=== PATIENT | female | born 1955 | race Caucasian/White ===

== ENCOUNTER 2022-08-09 14:12 | Outpatient (REF) | payer OTHER, SELFPAY ==
[2022-08-09 16:23] LABS: MANUAL DIFF FLAG NO
[2022-08-09 16:27] LABS: Basophils Absolute Auto 0.1 X10*3/uL (0.0-0.2); Basophils Percent Auto 0.6 % (0-2); Eosinophils Percent Auto 0.2 % (0-4); Hemoglobin 15.3 g/dl (12.0-16.0); Imm Gran Abs Auto 0.04 X10*3/uL (0.00-0.03); Imm Gran Pct Auto 0.3 % (0.0-0.4); Lymphocytes Absolute Auto 4.2 X10*3/uL (1.2-4.9); Lymphocytes Percent Auto 34.2 % (20-40); Mean Corpuscular Hemoglobin 28.5 pg (27.0-33.0); Mean Platelet Volume 9.6 fL (9.4-12.3); Monocytes Absolute Auto 0.9 X10*3/uL (0.1-1.2); Monocytes Percent Auto 7.6 % (2-11); Neutrophils Absolute Auto 6.9 x10*3/uL (2.0-8.3); Neutrophils Percent Auto 57.1 % (45-73); Platelet Count 347 X10*3/uL (160-400); Red Blood Count 5.36 X10*6/uL (4.20-5.50); Red Cell Distribution Width 13.4 % (11.0-16.0); White Blood Count 12.2 X10*3/uL (4.8-10.8)
[2022-08-09 16:40] LABS: Alanine Aminotransferase 22 U/L (0-31); Albumin Level 4.7 g/dL (3.5-5.0); Alkaline Phosphatase 74 U/L (39-117); Anion Gap 20 (12-20); Aspartate Amino Transferase 18 U/L (5-31); Bilirubin Direct < 0.2 mg/dL (0.0-0.5); Bilirubin Total 0.3 mg/dL (0.0-1.0); Blood Urea Nitrogen 11 mg/dL (9-16); Carbon Dioxide 22 mmol/L (22-29); Chloride 91 mmol/L (96-108); Estimated Glomerular Filt Rate > 60; Glucose Fasting 310 mg/dL (60-99); Potassium 4.8 mmol/L (3.3-5.1); Sodium 128 mmol/L (135-145); Total Protein 7.7 g/dL (6.5-8.0)
[2022-08-09 16:42] LABS: Estimated Average Glucose 269 mg/dL
[2022-08-09 16:48] LABS: Creatinine Urine 33.92 mg/dL; Microalbum/Creatinine Ratio Ur 297.7 ug/mg cr
[2022-08-09 17:00] LABS: TSH reflex Free T4 1.33 uIU/mL (0.32-4.0)
== END 2022-08-09 14:13 | disposition home or self-care (01) ==
LOC: HO.HMGCLDS 14:12
PROVIDERS: PCP Internal Medicine; Visit Provider Internal Medicine
DX: B37.9 Candidiasis, unspecified (principal); E11.9 Type 2 diabetes mellitus without complications; F41.1 Generalized anxiety disorder; G47.9 Sleep disorder, unspecified; I10 Essential (primary) hypertension; Z76.89 Persons encountering health services in other specified circumstances
CPT/HCPCS: 36415; 80053; 80076; 82043; 82248; 83036; 84443; 85025

== ENCOUNTER 2022-08-20 10:11 | Outpatient (REF) | payer OTHER, SELFPAY ==
[2022-08-20 11:51] LABS: Anion Gap 16 (12-20); Blood Urea Nitrogen 8 mg/dL (9-16); Carbon Dioxide 26 mmol/L (22-29); Chloride 94 mmol/L (96-108); Estimated Glomerular Filt Rate > 60; Potassium 4.7 mmol/L (3.3-5.1); Sodium 131 mmol/L (135-145)
== END 2022-08-20 10:12 | disposition home or self-care (01) ==
LOC: HO.HMGCLDS 10:11
PROVIDERS: PCP Internal Medicine; Visit Provider Internal Medicine
DX: E87.1 Hypo-osmolality and hyponatremia (principal)
CPT/HCPCS: 36415; 80051; 82565; 84520

== ENCOUNTER 2023-02-07 09:43 | Outpatient (REF) | payer OTHER, SELFPAY ==
[2023-02-07 11:32] LABS: Estimated Average Glucose 237 mg/dL; Hemoglobin A1c % 9.9 %
[2023-02-07 11:50] LABS: Alanine Aminotransferase 19 U/L (0-31); Albumin Level 4.8 g/dL (3.5-5.0); Alkaline Phosphatase 70 U/L (39-117); Anion Gap 15 (12-20); Aspartate Amino Transferase 14 U/L (5-31); Bilirubin Total 0.4 mg/dL (0.0-1.0); Blood Urea Nitrogen 9 mg/dL (9-16); Calcium 9.9 mg/dL (8.4-10.2); Carbon Dioxide 26 mmol/L (22-29); Chloride 94 mmol/L (96-108); Estimated Glomerular Filt Rate > 60; Glucose Random 226 mg/dL (60-115); Potassium 4.4 mmol/L (3.3-5.1); Sodium 131 mmol/L (135-145); Total Protein 7.7 g/dL (6.5-8.0)
--- NOTE | 2023-03-06 14:45 | MHC.HEMONCSW ---
SW rec'd a voicemail message from Katja Ortiz stating that she was told to come someone in oncologist ab=nd left the # . Called that # and rec'd a msg stating, This is Cowboy, you know what to do . I tried the number again in the event i had dialed wrong, got the same message. Left a msg with the above info. and my contact info.
--- NOTE | 2023-03-06 14:53 | MHC.HEMONCSW ---
LUIS rec'd call back from Katja Ortiz who said her primary dr had told her to call here, but has not mentioned anything about cancer. Luis directed her back to her primary for more information and call us back, and suggested maybe her . needs to call.
== END 2023-02-07 09:44 | disposition home or self-care (01) ==
LOC: HO.HMGCLDS 09:43
PROVIDERS: PCP Internal Medicine; Visit Provider Internal Medicine
DX: E87.1 Hypo-osmolality and hyponatremia (principal); I10 Essential (primary) hypertension; F41.1 Generalized anxiety disorder
CPT/HCPCS: 36415; 80053; 83036

== ENCOUNTER 2023-06-02 08:04 | Day surgery (SDC) | payer OTHER, SELFPAY ==
[2023-06-02 08:57] VITALS: BMI 25.4
--- NOTE | 2023-06-02 09:20 | HO.ANESPROP2 ---
FORMERLY [facility], LATER [facility] Active Problems Active Problems: All Active Problems (Updated 06/02/23 @ 09:16 by Sade Tucker RN) Establishing care with new doctor, encounter for (Acute) Diabetes mellitus (Acute) Anxiety, generalized (Acute) Difficulty sleeping (Acute) Hypertension, essential (Acute) Yeast infection (Acute) Encounter for routine gynecological examination (Acute) Hyponatremia (Acute) Uncontrolled diabetes mellitus (Acute) Tobacco abuse (Acute) Smokers' cough (Acute) Past Medical History Medical History Anxiety Diabetes Elevated cholesterol HTN (hypertension) Smoker Family History Family history of problems with anesthesia: No Surgical History Surgical History (Updated 06/02/23 @ 09:17 by Sade Tucker, RN) Hx of colonoscopy Hx of elbow surgery History of Problems with Anesthesia: No Social History Social History Housing: House Patient Tobacco Use Status: Current everyday Tobacco user Tobacco use type: Cigarette Cigarettes Per Day: 9 e-Cigarette/Vaping Use: Never Used Use of substances other than those prescribed or required for medical reasons: Yes Substance Use Type Other:: smoked and edibles Substance Use Frequency: Occasionally Are you DNR?: No Advance Directives: No Advance Directives Information Provided: Yes service: No Current occupational status: disabled Cognitive needs: No Hearing needs: No Vision needs: Yes Meds Allergies Allergy/AdvReac Type Severity Reaction Status Date / Time paroxetine [From Paxil] AdvReac Itching Verified 06/02/23 09:17 Active Medications: Current Medications Albuterol Sulfate (Albuterol Sulfate (0.083%) 2.5 Mg/3 Ml Vial.Neb) 2.5 mg INHALE ONCE PRN PRN Reason: Shortness of Breath/Wheezing Lactated Ringer's (Lr) 1,000 mls @ 100 mls/hr IVCONT .Q10H [facility] Home Medications Medication Instructions Recorded Confirmed Last Taken Type clonazepam 0.5 mg tablet 0.5 mg PO BID 06/02/23 06/02/23 Unknown History Exam Exam Date and Time: June 02, 2023 0920 Height,Weight and Vital Signs: Height 5 ft 6.5 in Weight 72.575 kg Airway Mallampati Class: II TM Dist: >3cm Neck ROM: Full Denture: Upper Heart: rrr Lungs: cta Assessment and Plan Assessment Anesthesia Assessment: Anesthesia Plan Discussed and Chart Reviewed Final Anesthetic Review Family History of Problems with Anesthesia: No History of Problems with Anesthesia: No NPO: Yes ASA Class: III Final Preanesthetic Review: No Changes in Pt Med Stat, Meds/Allgs Chart Reviewed and Consent Obtained/Reviewed Patient Risk: Intermediate Procedure Risk: Intermediate Anesthetic Plan Anesthetic Plan: MAC: Disposition: Standard PACU
[2023-06-02 09:30] VITALS: BP 128/83; PULSE 81; RESP 16; TEMP 35.9; O2SAT 99
[2023-06-02] MEDS: Lactated Ringers 1,000 ML 100 ML IVCONT (09:31)
[2023-06-02 09:36] LABS: Glucose, Whole Blood 251 mg/dL (60-115)
--- NOTE | 2023-06-02 09:52 | MHC.SHP ---
Pre-Procedural Eval Section A Date of Service: 06/02/23 The patient is an INPATIENT: No The History & Physical has been completed within 30 days and I have reviewed it.: No Section B Chief Complaint: Encounter for screening for malignant neoplasm Relevant Family History (Specify if Yes): No Relevant Social History: Tobacco Use Present Medications: see Short Stay Collaborative assessment Medical History: Significant History (Hypertension, diabetes mellitus, anxiety disorder) History of Previous Operations: Relevant previous surgery/procedure and date(s) (History of colonoscopy, history of elbow surgery) Allergies: Allergies Allergy/AdvReac Type Severity Reaction Status Date / Time paroxetine [From Paxil] AdvReac Itching Verified 06/02/23 09:17 Review of Systems Sugical H&P ROS: Negative: Constitution, Cardiovascular, Respiratory and Gastrointestinal Exam Surgical H&P Exam: Normal: Heart, Normal: Lungs, Normal: Extremities and Normal: Abdomen Plan Diagnosis/Plan: Change (proceed with colonoscopy) I have reviewed the history and physical and performed a pertinent physical examination on my patient. No changes have occurred unless specified. Time Spent With Patient Time: Total time managing care of this patient today ____ minutes.
--- NOTE | 2023-06-02 10:26 | W.PM.OPN ---
Operative Note Operative Note Date of Service: 06/02/23 Narrative: COLONOSCOPY TILL CECUM WITH SNARE POLYPECTOMY Pre-op diagnosis: Colon cancer screening (pt scheduled for direct access colonosopy) Post-op diagnosis:? Colon polyps, diverticulosis Endoscopist:? Argenis Erazo MD Anesthesia:?MAC Consent: Indications for the procedure and potential complications of bleeding, perforation, reaction to medications and missed diagnosis were discussed with the patient and informed consent was obtained. Instrument: Olympus PCF H 190 L variable stiffness pediatric colonoscope Monitoring: Vital signs and clinical assessment, intermittent blood pressure monitoring, continuous EKG monitoring, Pulse oximetry and Carbon Dioxide monitoring were done throughout the procedure. Please see anesthesia flowsheet. Colon withdrawl time was 20 minutes. Procedure: The patient was placed in the left lateral decubitis position and pre-procedure medications were administered. After a digital rectal examination of the ano-rectum, the video colonoscope was inserted into the rectum and advanced through the colon to the cecum. The colonoscope was slowly withdrawn in a retrograde panoramic fashion and the colon mucosa was carefully examined including a retroflexed view of the rectum. Findings and interventions are described below. Procedure Difficulty: Without difficulty Findings: Terminal Ileum: Not evaluated Cecum: Normal Ascending Colon: A 6-7 mm sessile polyp in mid AC - removed with a cold snare Transverse Colon: A 12-15 mm sessile polyp at the hepatic flexure at 70 cms - removed with a hot snare Descending Colon: Moderate diverticulosis Sigmoid Colon: Three 8-12 mm sessile polyps - removed with a hot snare. Moderate diverticulosis Rectum: Normal Ano-rectum: Normal Colon preparation: Good after some irrigation Impression and Post Procedure Diagnosis: Colonoscopy Findings: Five small to medium sized polyps removed Moderate diverticulosis seen in the left colon Plan: I will send a letter with pathology results Patient has an appointment on 06/17/23 with her PCP. Repeat Colonoscopy interval based on path results - in 2-3 years if polyps are adenomatous and 10 years if polyps are hyperplastic. Above findings were reviewed with the patient and colon polyps and diverticulosis handouts were given in the discharge area
[2023-06-02 11:13] VITALS: BP 139/77; PULSE 82; RESP 16; TEMP 36.3; O2SAT 98
[2023-06-02 11:28] VITALS: BP 133/76; PULSE 75; RESP 14; TEMP 36.8; O2SAT 100
== END 2023-06-02 11:59 | disposition home or self-care (01) ==
PROVIDERS: PCP Internal Medicine; Visit Provider Internal Medicine Gastroenterology
PROC: 0DJD8ZZ Inspection of Lower Intestinal Tract, Via Natural or Artificial Opening Endoscopic (ICD-10-PCS; CPT 45378; principal; 2023-06-02 10:10)
DX: Z12.11 Encounter for screening for malignant neoplasm of colon (principal); D12.2 Benign neoplasm of ascending colon; D12.5 Benign neoplasm of sigmoid colon; K57.30 Diverticulosis of large intestine without perforation or abscess without bleeding; E11.9 Type 2 diabetes mellitus without complications; I10 Essential (primary) hypertension; Z79.84 Long term (current) use of oral hypoglycemic drugs; Z79.899 Other long term (current) drug therapy; F17.210 Nicotine dependence, cigarettes, uncomplicated
CPT/HCPCS: 45385; 82947; 88305

== ENCOUNTER → 2023-06-02 08:04 | Outpatient (BNV) | payer OTHER, SELFPAY | PROVIDERS: PCP Internal Medicine; Visit Provider Internal Medicine Gastroenterology | DX: Z12.11 Encounter for screening for malignant neoplasm of colon (principal); D12.2 Benign neoplasm of ascending colon; D12.3 Benign neoplasm of transverse colon; D12.5 Benign neoplasm of sigmoid colon; K57.30 Diverticulosis of large intestine without perforation or abscess without bleeding | CPT/HCPCS: 45385 ==

== ENCOUNTER 2023-06-17 12:04 | Outpatient (AMB) | payer OTHER, SELFPAY ==
[2023-06-17 12:28] VITALS: BP 128/68; PULSE 85; O2SAT 98
--- NOTE | 2023-06-17 12:28 | A.OFFPC_ITS ---
Vital Signs 06/17/23 12:28 Weight 153 lb BP 128/68 Blood Pressure Location Lt brachial Position Sitting Pulse 85 Pulse Source Pulse Oximeter Pulse Oximetry (%) 98 Oxygen Delivery Method Room Air Intake Visit Reasons: BP Follow up Allergies paroxetine [From Paxil] Adverse Reaction (Verified 06/17/23 12:30) Itching Medication List - Last Reconciled 06/17/23 by Carlos Alberto Zapata MD atorvastatin 40 mg PO DAILY buspirone 15 mg PO TID 30 days clonazepam 0.5 mg PO BID glipizide 10 mg PO BID 90 days lisinopril 20 mg PO DAILY metformin 1,000 mg PO BID 90 days pioglitazone (Actos) 30 mg PO DAILY trazodone 200 mg (2 x 100 mg) PO BEDTIME PRN Tobacco use date assessed: 06/17/23 Fall risk assessment: No Falls in past year Last assessed Fall Risk: 06/17/23 Dental Screening Dental Screen Date: 06/17/23 Did you have a dental visit in the last 12 months?: No Did you have a dental problem in the last 6 months where you did not have access to dental care?: No Was dental information given to patient?: No HPI BP Follow up HPI Details Patient is 67-year-old female came in today for her follow-up appointment last time seen was January of this year Hypertension: Patient is on lisinopril 20 mg, tolerating medication and blood pressure is well controlled Patient continued to smoke and she is having smoker's cough.? Once again instructed patient to stop as soon as possible.? Sleeping difficulty:? Continue trazodone 100 mg patient has been taking that for a while initially was started by a psychiatrist that patient is no longer seeing Anxiety:? Buspirone will be fine I can fill that however I will not be able to prescribe clonazepam that she is taking 2 times a day through Psychiatry Diabetes mellitus: Last hemoglobin A1c was in 9 range, She is currently taking glipizide 10 mg b.i.d. and metformin 1 g b.i.d. and Actos 30 mg 80 Today her hemoglobin A1c is 9.3, I am starting her on Trulicity patient will be get up and will book appointment with the nurse so we can teach her how to administer that once a week Lipid disorder:? Continue atorvastatin 40 mg Patient is to return in 3 months for follow-up appointment labs to be done before visit PFSH Medical History Anxiety Diabetes Elevated cholesterol HTN (hypertension) Smoker Surgical History Hx of colonoscopy Hx of elbow surgery Social History Housing: House Patient Tobacco Use Status: Current everyday Tobacco user Tobacco use type: Cigarette Cigarettes Per Day: 9 e-Cigarette/Vaping Use: Never Used service: No Current occupational status: disabled Cognitive needs: No Hearing needs: No Vision needs: Yes Questionnaire AUDIT C Alcohol Use Questionnaire (AUDIT-C) 1. How often do you have a drink containing alcohol?: Never 3. How often do you have six or more drinks on one occasion?: Never Total Score: 0 Score Reviewed/Action Taken: Yes Review of Systems Const Denies chills and Denies fever(s) ENT Denies epistaxis and Denies nasal discharge Card Denies chest pain Resp Denies chest congestion, Denies cough and Denies hemoptysis GI Denies diarrhea and Denies nausea Skin/Breast Denies rash Neuro Reports no additional complaints Psych Reports no additional complaints Endo Reports no additional complaints Physical exam (Primary Care) Vital Signs: Last Vital Signs Pulse 85 06/17/23 12:28 BP 128/68 06/17/23 12:28 Pulse Ox 98 06/17/23 12:28 Oxygen Delivery Method Room Air 06/17/23 12:28 Tobacco/Smoking Status: Tobacco use Status Tobacco use date assessed 06/17/23 06/17/23 12:31 Patient Tobacco Use Status Current everyday Tobacco 06/17/23 12:31 Tobacco use type Cigarette 06/17/23 12:31 e-Cigarette/Vaping Use Never Used 06/17/23 12:31 Const General: cooperative, comfortable and no acute distress Orientation/consciousness: patient oriented x3 HENMT Head: Yes normocephalic Eyes General: appearance normal, both eyes and all related structures Neck Neck: Yes supple Resp Effort & Inspection: normal respiratory effort, no cough and no stridor Cardio Rhythm: regular rhythm Heart sounds: S1 normal heart sound present and S2 normal heart sound present Skin General skin exam: turgor normal Neuro General: patient oriented x3, tone normal and moves all extremities Extrem Right lower extremity: no edema Left lower extremity: no edema Results AMB Hemoglobin A1c AMB Hemoglobin A1c 9.3 % Last Edit by JHOAN Tay on 06/17/23 12 :52 Results Reviewed Results Reviewed: Laboratory Last Values Hgb A1c (Clinic) 9.3 % (4.0-6.0) H 06/17/23 12:51 Assessment and Plan Assessment & Plan (1) Uncontrolled diabetes mellitus: (2) Hypertension, essential: Code(s): I10 - Essential (primary) hypertension (3) Anxiety, generalized: Code(s): F41.1 - Generalized anxiety disorder (4) Difficulty sleeping: Code(s): G47.9 - Sleep disorder, unspecified (5) Tobacco abuse: Code(s): Z72.0 - Tobacco use (6) Smokers' cough: Code(s): J41.0 - Simple chronic bronchitis Plan Patient is 67-year-old female came in today for her follow-up appointment last time seen was January of this year Hypertension: Patient is on lisinopril 20 mg, tolerating medication and blood pressure is well controlled Patient continued to smoke and she is having smoker's cough.? Once again instructed patient to stop as soon as possible.? Sleeping difficulty:? Continue trazodone 100 mg patient has been taking that for a while initially was started by a psychiatrist that patient is no longer seeing Anxiety:? Buspirone will be fine I can fill that however I will not be able to prescribe clonazepam that she is taking 2 times a day through Psychiatry Diabetes mellitus: Last hemoglobin A1c was in 9 range, She is currently taking glipizide 10 mg b.i.d. and metformin 1 g b.i.d. and Actos 30 mg 80 Today her hemoglobin A1c is 9.3, I am starting her on Trulicity patient will be get up and will book appointment with the nurse so we can teach her how to administer that once a week Lipid disorder:? Continue atorvastatin 40 mg Patient is to return in 3 months for follow-up appointment labs to be done before visit Orders: Orders Hemoglobin A1c 3 Months F41.1 - Generalized anxiety disorder, G47.9 - Sleep disorder, unspecified, I10 - Essential (primary) hypertension Complete Blood Count Auto Diff 3 Months F41.1 - Generalized anxiety disorder, G47.9 - Sleep disorder, unspecified, I10 - Essential (primary) hypertension Comprehensive Met. Panel 3 Months F41.1 - Generalized anxiety disorder, G47.9 - Sleep disorder, unspecified, I10 - Essential (primary) hypertension LDL Cholesterol Direct 3 Months F41.1 - Generalized anxiety disorder, G47.9 - Sleep disorder, unspecified, I10 - Essential (primary) hypertension Microalbumin, Random (w Creat) 3 Months F41.1 - Generalized anxiety disorder, G47.9 - Sleep disorder, unspecified, I10 - Essential (primary) hypertension AMB Hemoglobin A1c Today Z13.9 - Encounter for screening, unspecified Medications: New Trulicity (dulaglutide) 1.5 mg (0.5 mL) subcut QWEEK 2 mL 3RF 30 days NS Coding Level of Care Code Est Pt Level 4 (59847) Diagnoses Uncontrolled diabetes mellitus Hypertension, essential I10 Anxiety, generalized F41.1 Difficulty sleeping G47.9 Tobacco abuse Z72.0 Smokers' cough J41.0
== END 2023-06-17 12:57 | disposition home or self-care (01) ==
PROVIDERS: PCP Internal Medicine; Visit Provider Internal Medicine
DX: I10 Essential (primary) hypertension (principal); J41.0 Simple chronic bronchitis; E11.65 Type 2 diabetes mellitus with hyperglycemia; F41.1 Generalized anxiety disorder; G47.9 Sleep disorder, unspecified; Z72.0 Tobacco use
CPT/HCPCS: 83036; 99214

== ENCOUNTER 2024-02-04 15:03 | Outpatient (AMB) | payer OTHER, SELFPAY ==
--- NOTE | 2024-02-04 15:07 | MHC.PC.OV ---
Vital Signs 02/04/24 15:16 Height 5 ft 6.5 in Weight 161 lb 6 oz BMI 25.7 BP 132/80 Blood Pressure Location Lt brachial Position Sitting Pulse 86 Pulse Source Pulse Oximeter Pulse Oximetry (%) 96 Oxygen Delivery Method Room Air Intake Visit Reasons: 6 month follow up Allergies paroxetine [From Paxil] Adverse Reaction (Verified 02/04/24 15:18) Itching Medication List - Last Reviewed 02/04/24 by Miriam Panda MA atorvastatin 40 mg PO DAILY buspirone 15 mg PO TID 30 days clonazepam 0.5 mg PO BID glipizide 10 mg PO BID 90 days lisinopril 20 mg PO DAILY metformin 1,000 mg PO BID 90 days pioglitazone (Actos) 30 mg PO DAILY trazodone 200 mg (2 x 100 mg) PO BEDTIME PRN Trulicity (dulaglutide) 1.5 mg (0.5 mL) subcut QWEEK 30 days NS Tobacco use date assessed: 02/04/24 Fall risk assessment: No Falls in past year Last assessed Fall Risk: 02/04/24 Dental Screening Dental Screen Date: 02/04/24 Did you have a dental visit in the last 12 months?: Yes Did you have a dental problem in the last 6 months where you did not have access to dental care?: No Was dental information given to patient?: Patient has dentist HPI 6 month follow up HPI Details Patient is 68-year-old female came in today for her follow-up appointment Labs were supposed to be done before the visit, but they are not done, reminded patient again Hypertension: Patient is on lisinopril 20 mg, tolerating medication and blood pressure is well controlled Patient continued to smoke and she is having smoker's cough.? Once again instructed patient to stop as soon as possible.? Sleeping difficulty:? Continue trazodone 100 mg patient has been taking that for a while initially was started by a psychiatrist that patient is no longer seeing Anxiety:? Buspirone will be fine I can fill that however I will not be able to prescribe clonazepam that she is taking 2 times a day through Psychiatry Diabetes mellitus: Blood sugar is uncontrolled She is currently taking glipizide 10 mg b.i.d. and metformin 1 g b.i.d. and Actos 30 mg I started her on Trulicity last visit Her hemoglobin A1c is 11.3, patient says that she never started Trulicity because pharmacy never keep. When I asked her wearing to let me know she said I do not know I have sent it again, this time patient is to let me know if there is a problem picking it up. Also we will be sending diabetic supplies, she is to start checking her fasting sugar She has an appointment early May patient will return with her sugar log Lipid disorder:? Continue atorvastatin 40 mg Patient is to return in 3 months [facility] Medical History Anxiety Smoker Diabetes Elevated cholesterol HTN (hypertension) Surgical History Hx of colonoscopy Hx of elbow surgery Social History Housing: House Patient Tobacco Use Status: Current everyday Tobacco user Tobacco use type: Cigarette Cigarettes Per Day: 9 e-Cigarette/Vaping Use: Never Used service: No Current occupational status: disabled Cognitive needs: No Hearing needs: No Vision needs: Yes Questionnaire AUDIT C Alcohol Use Questionnaire (AUDIT-C) 1. How often do you have a drink containing alcohol?: Never 3. How often do you have six or more drinks on one occasion?: Never Total Score: 0 Score Reviewed/Action Taken: Yes Review of Systems Const Denies chills and Denies fever(s) ENT Denies epistaxis and Denies nasal discharge Card Denies chest pain Resp Denies chest congestion, Denies cough and Denies hemoptysis GI Denies diarrhea and Denies nausea Skin/Breast Denies rash Neuro Reports no additional complaints Psych Reports no additional complaints Endo Reports no additional complaints Physical exam (Primary Care) Vital Signs: Last Vital Signs Pulse 86 02/04/24 15:16 BP 132/80 02/04/24 15:16 Pulse Ox 96 02/04/24 15:16 Oxygen Delivery Method Room Air 02/04/24 15:16 BMI result Body Mass Index 25.7 Tobacco/Smoking Status: Tobacco use Status Tobacco use date assessed 02/04/24 02/04/24 15:09 Patient Tobacco Use Status Current everyday Tobacco 02/04/24 15:09 Tobacco use type Cigarette 02/04/24 15:09 e-Cigarette/Vaping Use Never Used 02/04/24 15:09 Const General: cooperative, comfortable and no acute distress Orientation/consciousness: patient oriented x3 HENMT Head: Yes normocephalic Eyes General: appearance normal, both eyes and all related structures Neck Neck: Yes supple Resp Effort & Inspection: normal respiratory effort, no cough and no stridor Cardio Rhythm: regular rhythm Heart sounds: S1 normal heart sound present and S2 normal heart sound present Skin General skin exam: turgor normal Neuro General: patient oriented x3, tone normal and moves all extremities Extrem Right lower extremity: no edema Left lower extremity: no edema Results AMB Hemoglobin A1c AMB Hemoglobin A1c 11.3 % Last Edit by Miriam Panda MA on 02/04/24 15:28 Results Reviewed Results Reviewed: Laboratory Last Values Hgb A1c (Clinic) 11.3 % (4.0-6.0) H 02/04/24 15:27 Assessment and Plan Assessment & Plan (1) Uncontrolled diabetes mellitus: Qualifiers: Diabetes mellitus type: type 2 Glycemic state: with hyperglycemia Qualified Code(s): E11.65 - Type 2 diabetes mellitus with hyperglycemia (2) Hypertension, essential: Code(s): I10 - Essential (primary) hypertension (3) Anxiety, generalized: Code(s): F41.1 - Generalized anxiety disorder (4) Difficulty sleeping: Code(s): G47.9 - Sleep disorder, unspecified (5) Tobacco abuse: Code(s): Z72.0 - Tobacco use (6) Smokers' cough: Code(s): J41.0 - Simple chronic bronchitis Plan Patient is 68-year-old female came in today for her follow-up appointment Labs were supposed to be done before the visit, but they are not done, reminded patient again Hypertension: Patient is on lisinopril 20 mg, tolerating medication and blood pressure is well controlled Patient continued to smoke and she is having smoker's cough.? Once again instructed patient to stop as soon as possible.? Sleeping difficulty:? Continue trazodone 100 mg patient has been taking that for a while initially was started by a psychiatrist that patient is no longer seeing Anxiety:? Buspirone will be fine I can fill that however I will not be able to prescribe clonazepam that she is taking 2 times a day through Psychiatry Diabetes mellitus: Blood sugar is uncontrolled She is currently taking glipizide 10 mg b.i.d. and metformin 1 g b.i.d. and Actos 30 mg I started her on Trulicity last visit Her hemoglobin A1c is 11.3, patient says that she never started Trulicity because pharmacy never keep. When I asked her wearing to let me know she said I do not know I have sent it again, this time patient is to let me know if there is a problem picking it up. Also we will be sending diabetic supplies, she is to start checking her fasting sugar She has an appointment early May patient will return with her sugar log Lipid disorder:? Continue atorvastatin 40 mg Patient is to return in 3 months Medications: Refilled Trulicity (dulaglutide) 1.5 mg (0.5 mL) subcut QWEEK 2 mL 3RF 30 days NS Coding Level of Care Code Est Pt Level 4 (56546) Diagnoses Uncontrolled type 2 diabetes mellitus with hyperglycemia E11.65 Diabetes mellitus type: type 2 Glycemic state: with hyperglycemia Hypertension, essential I10 Anxiety, generalized F41.1 Difficulty sleeping G47.9 Tobacco abuse Z72.0 Smokers' cough J41.0
[2024-02-04 15:16] VITALS: BP 132/80; PULSE 86; O2SAT 96; BMI 25.7
== END 2024-02-04 15:31 | disposition home or self-care (01) ==
PROVIDERS: PCP Internal Medicine; Visit Provider Internal Medicine
DX: E11.65 Type 2 diabetes mellitus with hyperglycemia (principal); J41.0 Simple chronic bronchitis; I10 Essential (primary) hypertension; F41.1 Generalized anxiety disorder; G47.9 Sleep disorder, unspecified; Z72.0 Tobacco use
CPT/HCPCS: 99214

== ENCOUNTER 2024-04-16 13:38 | Outpatient (AMB) | payer OTHER, SELFPAY ==
--- NOTE | 2024-04-16 13:38 | A.OFFPC_ITS ---
Vital Signs 04/16/24 13:39 Height 5 ft 6.5 in Weight 155 lb 2 oz BMI 24.7 BP 154/90 H Blood Pressure Location Lt brachial Position Sitting Pulse 100 Pulse Source Pulse Oximeter Pulse Oximetry (%) 99 Oxygen Delivery Method Room Air Intake Visit Reasons: 9M Follow Up Allergies paroxetine [From Paxil] Adverse Reaction (Verified 04/16/24 13:41) Itching Medication List - Last Reconciled 04/16/24 by Carlos Alberto Zapata MD atorvastatin 40 mg PO DAILY blood sugar diagnostic (Accu-Chek Guide test strips) Test blood sugar once a day blood-glucose meter (Accu-Chek Guide Me Glucose Meter) As directed buspirone 15 mg PO TID 30 days clonazepam 0.5 mg PO BID dulaglutide 4.5 mg (0.5 mL) subcut QWEEK glipizide 10 mg PO BID 90 days lancets (Accu-Chek Softclix Lancets) Test blood sugar once a day lisinopril 20 mg PO DAILY metformin 1,000 mg PO BID 90 days pioglitazone (Actos) 30 mg PO DAILY trazodone 200 mg (2 x 100 mg) PO BEDTIME PRN Tobacco use date assessed: 04/16/24 Fall risk assessment: No Falls in past year Last assessed Fall Risk: 04/16/24 Dental Screening Dental Screen Date: 04/16/24 Did you have a dental visit in the last 12 months?: Yes Did you have a dental problem in the last 6 months where you did not have access to dental care?: No Was dental information given to patient?: Patient has dentist HPI 9M Follow Up HPI Details Patient is 68-year-old female came in today for regular follow-up appointment She still has not picked up Trulicity injection Still taking the same amount of insulin And has not been monitoring her sugar either She is here with her today He tells me that they will be picking up new monitor and Trulicity next week Once day hot die picker the glucometer they will start monitoring the blood pressure Once again uncontrolled diabetes complications discussed with the patient and her She also continued to smoke Blood pressure is elevated today Last visit in January it was reasonably controlled, we will continue to monitor Continue atorvastatin for lipid control Anxiety is stable with buspirone and clonazepam She is also taking trazodone to sleep at night Follow-up 3 months labs to be done today PFSH Medical History Anxiety Smoker Diabetes Elevated cholesterol HTN (hypertension) Surgical History Hx of colonoscopy Hx of elbow surgery Social History Housing: House Patient Tobacco Use Status: Current everyday Tobacco user Tobacco use type: Cigarette Cigarettes Per Day: 9 e-Cigarette/Vaping Use: Never Used service: No Current occupational status: disabled Cognitive needs: No Hearing needs: No Vision needs: Yes Questionnaire AUDIT C Alcohol Use Questionnaire (AUDIT-C) 1. How often do you have a drink containing alcohol?: Never 3. How often do you have six or more drinks on one occasion?: Never Total Score: 0 Score Reviewed/Action Taken: Yes Review of Systems Const Denies chills and Denies fever(s) ENT Denies epistaxis and Denies nasal discharge Card Denies chest pain Resp Denies hemoptysis GI Denies diarrhea and Denies nausea Skin/Breast Denies rash Neuro Reports no additional complaints Psych Reports no additional complaints Endo Reports no additional complaints Physical exam (Primary Care) Vital Signs: Last Vital Signs Pulse 100 04/16/24 13:39 BP 154/90 H 04/16/24 13:39 Pulse Ox 99 04/16/24 13:39 Oxygen Delivery Method Room Air 04/16/24 13:39 BMI result Body Mass Index 24.7 Tobacco/Smoking Status: Tobacco use Status Tobacco use date assessed 04/16/24 04/16/24 13:42 Patient Tobacco Use Status Current everyday Tobacco 04/16/24 13:42 Tobacco use type Cigarette 04/16/24 13:42 e-Cigarette/Vaping Use Never Used 04/16/24 13:42 Const General: cooperative, comfortable and no acute distress Orientation/consciousness: patient oriented x3 HENMT Head: Yes normocephalic Eyes General: appearance normal, both eyes and all related structures Neck Neck: Yes supple Resp Effort & Inspection: normal respiratory effort, no cough and no stridor Cardio Rhythm: regular rhythm Heart sounds: S1 normal heart sound present and S2 normal heart sound present Skin General skin exam: turgor normal Neuro General: patient oriented x3, tone normal and moves all extremities Extrem Right lower extremity: no edema Left lower extremity: no edema Assessment and Plan Assessment & Plan (1) Uncontrolled diabetes mellitus: Qualifiers: Diabetes mellitus type: type 2 Glycemic state: with hyperglycemia Qualified Code(s): E11.65 - Type 2 diabetes mellitus with hyperglycemia (2) Hypertension, essential: Code(s): I10 - Essential (primary) hypertension (3) Anxiety, generalized: Code(s): F41.1 - Generalized anxiety disorder (4) Difficulty sleeping: Code(s): G47.9 - Sleep disorder, unspecified (5) Tobacco abuse: Code(s): Z72.0 - Tobacco use Plan Patient is 68-year-old female came in today for regular follow-up appointment She still has not picked up Trulicity injection Still taking the same amount of insulin And has not been monitoring her sugar either She is here with her today He tells me that they will be picking up new monitor and Trulicity next week Once day hot die picker the glucometer they will start monitoring the blood pressure Once again uncontrolled diabetes complications discussed with the patient and her She also continued to smoke Blood pressure is elevated today Last visit in January it was reasonably controlled, we will continue to monitor Continue atorvastatin for lipid control Anxiety is stable with buspirone and clonazepam She is also taking trazodone to sleep at night Follow-up 3 months labs to be done today Orders: Orders Hemoglobin A1c Today E11.65 - Type 2 diabetes mellitus with hyperglycemia, F41.1 - Generalized anxiety disorder, G47.9 - Sleep disorder, unspecified, I10 - Essential (primary) hypertension, Z72.0 - Tobacco use Complete Blood Count Auto Diff Today E11.65 - Type 2 diabetes mellitus with hyperglycemia, F41.1 - Generalized anxiety disorder, G47.9 - Sleep disorder, unspecified, I10 - Essential (primary) hypertension, Z72.0 - Tobacco use LDL Cholesterol Direct Today E11.65 - Type 2 diabetes mellitus with hyperglycemia, F41.1 - Generalized anxiety disorder, G47.9 - Sleep disorder, unspecified, I10 - Essential (primary) hypertension, Z72.0 - Tobacco use Microalbumin, Random (w Creat) Today E11.65 - Type 2 diabetes mellitus with hyperglycemia, F41.1 - Generalized anxiety disorder, G47.9 - Sleep disorder, unspecified, I10 - Essential (primary) hypertension, Z72.0 - Tobacco use Comprehensive Met. Panel Today E11.65 - Type 2 diabetes mellitus with hyperglycemia, F41.1 - Generalized anxiety disorder, G47.9 - Sleep disorder, unspecified, I10 - Essential (primary) hypertension, Z72.0 - Tobacco use Coding Level of Care Code Est Pt Level 4 (14111) Complex EM visit Add On G2211 Diagnoses Uncontrolled type 2 diabetes mellitus with hyperglycemia E11.65 Diabetes mellitus type: type 2 Glycemic state: with hyperglycemia Hypertension, essential I10 Anxiety, generalized F41.1 Difficulty sleeping G47.9 Tobacco abuse Z72.0
[2024-04-16 13:39] VITALS: BP 154/90; PULSE 100; O2SAT 99; BMI 24.7
== END 2024-04-16 14:03 | disposition home or self-care (01) ==
LOC: HO.HMGC 13:38
PROVIDERS: PCP Internal Medicine; Visit Provider Internal Medicine
DX: E11.65 Type 2 diabetes mellitus with hyperglycemia (principal); I10 Essential (primary) hypertension; F41.1 Generalized anxiety disorder; G47.9 Sleep disorder, unspecified; Z72.0 Tobacco use
CPT/HCPCS: 99214; G2211

== ENCOUNTER 2024-04-16 14:00 | Outpatient (REF) | payer OTHER, SELFPAY ==
[2024-04-16 16:04] LABS: MANUAL DIFF FLAG NO
[2024-04-16 16:19] LABS: Basophils Absolute Auto 0.1 X10*3/uL (0.0-0.2); Basophils Percent Auto 0.4 % (0-2); Eosinophils Percent Auto 0.1 % (0-4); Hematocrit 42.3 % (37.0-47.0); Hemoglobin 14.6 g/dl (12.0-16.0); Imm Gran Abs Auto 0.07 X10*3/uL (0.00-0.03); Imm Gran Pct Auto 0.5 % (0.0-0.4); Lymphocytes Absolute Auto 2.7 X10*3/uL (1.2-4.9); Lymphocytes Percent Auto 19.2 % (20-40); Mean Corpuscular HGB Conc 34.5 g/dl (31.0-35.0); Mean Corpuscular Hemoglobin 28.8 pg (27.0-33.0); Mean Corpuscular Volume 83.4 fL (80.0-98.0); Mean Platelet Volume 9.8 fL (9.4-12.3); Monocytes Absolute Auto 1.1 X10*3/uL (0.1-1.2); Monocytes Percent Auto 7.7 % (2-11); Neutrophils Absolute Auto 10.1 x10*3/uL (2.0-8.3); Neutrophils Percent Auto 72.1 % (45-73); Platelet Count 306 X10*3/uL (160-400); Red Blood Count 5.07 X10*6/uL (4.20-5.50); Red Cell Distribution Width 13.7 % (11.0-16.0)
[2024-04-16 16:23] LABS: Estimated Average Glucose 171 mg/dL; Hemoglobin A1c % 7.6 % (<6.0)
[2024-04-16 16:27] LABS: Alanine Aminotransferase 18 U/L (0-31); Albumin Level 4.6 g/dL (3.5-5.0); Alkaline Phosphatase 57 U/L (39-117); Anion Gap 14 (12-20); Aspartate Amino Transferase 17 U/L (5-31); Bilirubin Total 0.4 mg/dL (0.0-1.0); Blood Urea Nitrogen 9 mg/dL (9-16); Calcium 9.9 mg/dL (8.4-10.2); Carbon Dioxide 25 mmol/L (22-29); Chloride 92 mmol/L (96-108); Estimated Glomerular Filt Rate > 60; Glucose Random 148 mg/dL (60-115); Sodium 127 mmol/L (135-145); Total Protein 7.7 g/dL (6.5-8.0)
[2024-04-17 14:18] LABS: LDL Cholesterol Direct 56 mg/dL (<100)
== END 2024-04-16 14:01 | disposition home or self-care (01) ==
LOC: HO.HMGCLDS 14:00
PROVIDERS: PCP Internal Medicine; Visit Provider Internal Medicine
DX: F41.1 Generalized anxiety disorder (principal); G47.9 Sleep disorder, unspecified; I10 Essential (primary) hypertension; E11.65 Type 2 diabetes mellitus with hyperglycemia; Z72.0 Tobacco use
CPT/HCPCS: 36415; 80053; 83036; 83721; 85025

== ENCOUNTER 2024-07-16 12:07 | Outpatient (AMB) | payer OTHER, SELFPAY ==
[2024-07-16 12:11] VITALS: BP 102/66; PULSE 102; O2SAT 99; BMI 24.5
--- NOTE | 2024-07-16 12:11 | A.OFFPC_ITS ---
Vital Signs 07/16/24 12:11 Height 5 ft 6.5 in Weight 154 lb BMI 24.5 BP 102/66 Blood Pressure Location Rt brachial Position Sitting Pulse 102 H Pulse Source Pulse Oximeter Pulse Oximetry (%) 99 Oxygen Delivery Method Room Air Intake Visit Reasons: 3 month follow up Allergies paroxetine [From Paxil] Adverse Reaction (Verified 07/16/24 12:17) Itching Medication List - Last Reconciled 07/16/24 by Carlos Alberto Zapata MD atorvastatin 40 mg PO DAILY blood sugar diagnostic (Accu-Chek Guide test strips) Test blood sugar once a day blood-glucose meter (Accu-Chek Guide Me Glucose Meter) As directed buspirone 15 mg PO TID 30 days clonazepam 0.5 mg PO BID dulaglutide 4.5 mg (0.5 mL) subcut QWEEK glipizide 10 mg PO BID 90 days lancets (Accu-Chek Softclix Lancets) Test blood sugar once a day lisinopril 20 mg PO DAILY metformin 1,000 mg PO BID 90 days pioglitazone (Actos) 30 mg PO DAILY trazodone 200 mg (2 x 100 mg) PO BEDTIME PRN Tobacco use date assessed: 04/16/24 Dental Screening Dental Screen Date: 04/16/24 HPI 3 month follow up HPI Details Patient is 68-year-old female came in today for regular follow-up appointment Patient is on Trulicity 4.5 mg injections Date is causing nausea and vomiting every morning Her hemoglobin A1c is 7.7 today I am reducing Trulicity to 3 mg hoping that that will help with nausea and vomiting She is also on metformin 1 g b.i.d. and pioglitazone 30 mg daily, she is to continue that She also continued to smoke , however cut down to half a pack a day Blood pressure is running low today but patient has no symptoms no lightheadedness no dizziness She has lost some weight since January Continue atorvastatin for lipid control Anxiety is stable with buspirone and clonazepam She is also taking trazodone to sleep at night Follow-up 3 months labs are needed before visit [facility] Medical History Anxiety Smoker Diabetes Elevated cholesterol HTN (hypertension) Surgical History Hx of colonoscopy Hx of elbow surgery Social History Housing: House Patient Tobacco Use Status: Current everyday Tobacco user Tobacco use type: Cigarette Cigarettes Per Day: 9 e-Cigarette/Vaping Use: Never Used service: No Current occupational status: disabled Cognitive needs: No Hearing needs: No Vision needs: Yes Questionnaire PHQ-9 Over the last 2 weeks, how often have you been bothered by any of the following problems? 1. Little interest or pleasure in doing things: not at all 2. Feeling down, depressed, or hopeless: not at all 3. Trouble falling or staying asleep, or sleeping too much: not at all 4. Feeling tired or having little energy: not at all 5. Poor appetite or overeating: not at all 6. Feeling bad about yourself - or that you are a failure or have let yourself or your family down: not at all 7. Trouble concentrating on things, such as reading the newspaper or watching television: not at all 8. Moving or speaking so slowly that other people could have noticed. Or the opposite - being so fidgety or restless that you have been moving around a lot more than usual: not at all 9. Thoughts that you would be better off or of hurting yourself in some way: not at all Total score: 0 Depression Screening Interpretation: Negative Depression Screening Done: Yes [id number] - PHQ-9 Billing: Yes Source: Developed by Drs. Clyde Mendoza, Britni Narayanan, Juan Marcum and colleagues, with an educational eileen from [employer]. Thrive Questionnaire Date Thrive assessed: 07/16/24 I am a: Patient What is your living situation today?: I have a steady place to live Within the past 12 months, did the food you bought not last and you didn't have the money to get more?: Never true Within the past 12 months, did you worry whether your food would run out before you got money to buy more?: Never true Do you have trouble paying for medicines?: No Do you have trouble getting transportation to medical appointments?: No Do you have trouble paying your heating and electricity bill?: No Do you have trouble taking care of your child, family member or friend?: No Do you have trouble with day-to-day activities such as bathing, preparing meals, shopping, managing finances, etc.?: No Are you currently unemployed and looking for a job?: No Are you interested in more education?: No Please select the resources that you would like help with: None THRIVE Score: 0 SETH-7 AMB Questionnaire SETH-7 Date SETH - 7 assessed: 07/16/24 Feeling nervous, anxious, or on edge: 0 = Not at all Not being able to stop or control worryin = Not at all Worrying too much about different things: 0 = Not at all Trouble relaxin = Not at all Being so restless that it is hard to sit still: 0 = Not at all Becoming easily annoyed or irritable: 0 = Not at all Feeling afraid as if something awful might happen: 0 = Not at all Total SETH-7 score (0-4 normal; 5-9 mild; 10-14 moderate; 15-21 severe): 0 Source: Developed by Drs. Clyde Mendoza, Britni Narayanan, Juan Marcum and colleagues, with an educational eileen from [employer]. Review of Systems Const Denies chills and Denies fever(s) ENT Denies epistaxis and Denies nasal discharge Card Denies chest pain Resp Denies chest congestion, Denies cough and Denies hemoptysis GI Denies diarrhea and Denies nausea Skin/Breast Denies rash Neuro Reports no additional complaints Psych Reports no additional complaints Endo Reports no additional complaints Physical exam (Primary Care) Vital Signs: Last Vital Signs Pulse 102 H 07/16/24 12:11 BP 102/66 07/16/24 12:11 Pulse Ox 99 07/16/24 12:11 Oxygen Delivery Method Room Air 07/16/24 12:11 BMI result Body Mass Index 24.5 Tobacco/Smoking Status: Tobacco use Status Tobacco use date assessed 04/16/24 07/16/24 12:14 Patient Tobacco Use Status Current everyday Tobacco 07/16/24 12:14 Tobacco use type Cigarette 07/16/24 12:14 e-Cigarette/Vaping Use Never Used 07/16/24 12:14 PHQ-9: PHQ-9 Score PHQ-9: Total score 0 07/16/24 12:35 Depression Screening Interpretation: Negative Thrive Assessment: Date of Thrive Assessment Date Thrive assessed 07/16/24 07/16/24 12:30 Const General: cooperative, comfortable and no acute distress Orientation/consciousness: patient oriented x3 HENMT Head: Yes normocephalic Eyes General: appearance normal, both eyes and all related structures Neck Neck: Yes supple Resp Effort & Inspection: normal respiratory effort, no cough and no stridor Cardio Rhythm: regular rhythm Heart sounds: S1 normal heart sound present and S2 normal heart sound present Skin General skin exam: turgor normal Neuro General: patient oriented x3, tone normal and moves all extremities Extrem Right lower extremity: no edema Left lower extremity: no edema Results AMB Hemoglobin A1c AMB Hemoglobin A1c 7.7 % Last Edit by DANIELITO Albarran on 07/16/24 12:2 9 Results Reviewed Results Reviewed: Laboratory Last Values Hgb A1c (Clinic) 7.7 % (4.0-6.0) H 07/16/24 12:23 Assessment and Plan Assessment & Plan (1) Diabetes mellitus: Code(s): E11.9 - Type 2 diabetes mellitus without complications Qualifiers: Diabetes mellitus complication status: with other specified complication Diabetes mellitus fci insulin use: without press tender long goods use Diabetes mellitus type: type 2 Qualified Code(s): E11.69 - Type 2 diabetes mellitus with other specified complication (2) Anxiety, generalized: Code(s): F41.1 - Generalized anxiety disorder (3) Difficulty sleeping: Code(s): G47.9 - Sleep disorder, unspecified (4) Hypertension, essential: Code(s): I10 - Essential (primary) hypertension (5) Hyponatremia: Code(s): E87.1 - Hypo-osmolality and hyponatremia (6) Tobacco abuse: Code(s): Z72.0 - Tobacco use Plan Patient is 68-year-old female came in today for regular follow-up appointment Patient is on Trulicity 4.5 mg injections Date is causing nausea and vomiting every morning Her hemoglobin A1c is 7.7 today I am reducing Trulicity to 3 mg hoping that that will help with nausea and vomiting She is also on metformin 1 g b.i.d. and pioglitazone 30 mg daily, she is to continue that She also continued to smoke , however cut down to half a pack a day Blood pressure is running low today but patient has no symptoms no lightheadedness no dizziness She has lost some weight since January Continue atorvastatin for lipid control Anxiety is stable with buspirone and clonazepam She is also taking trazodone to sleep at night Follow-up 3 months labs are needed before visit Orders: Orders Hemoglobin A1c 3 Months E11.9 - Type 2 diabetes mellitus without complications, E87.1 - Hypo-osmolality and hyponatremia, F41.1 - Generalized anxiety disorder, G47.9 - Sleep disorder, unspecified, I10 - Essential (primary) hypertension Complete Blood Count Auto Diff 3 Months E11.9 - Type 2 diabetes mellitus without complications, E87.1 - Hypo-osmolality and hyponatremia, F41.1 - Generalized anxiety disorder, G47.9 - Sleep disorder, unspecified, I10 - Essential (primary) hypertension Comprehensive Met. Panel 3 Months E11.9 - Type 2 diabetes mellitus without complications, E87.1 - Hypo-osmolality and hyponatremia, F41.1 - Generalized anxiety disorder, G47.9 - Sleep disorder, unspecified, I10 - Essential (primary) hypertension LDL Cholesterol Direct 3 Months E11.9 - Type 2 diabetes mellitus without complications, E87.1 - Hypo-osmolality and hyponatremia, F41.1 - Generalized anxiety disorder, G47.9 - Sleep disorder, unspecified, I10 - Essential (primary) hypertension AMB Hemoglobin A1c Today Z13.9 - Encounter for screening, unspecified Medications: Changed From dulaglutide 4.5 mg (0.5 mL) subcut QWEEK 2 mL 1RF E11.9 - Type 2 diabetes mellitus without complications To dulaglutide 4.5 mg (0.75 mL) subcut QWEEK 2 mL 1RF E11.9 - Type 2 diabetes mellitus without complications From dulaglutide 4.5 mg (0.75 mL) subcut QWEEK 2 mL 1RF E11.9 - Type 2 diabetes mellitus without complications To dulaglutide 3 mg (0.5 mL) subcut QWEEK 6.5 mL 1RF 90 days E11.9 - Type 2 diabetes mellitus without complications Coding Level of Care Code Est Pt Level 4 (67153) Diagnoses Type 2 diabetes mellitus with other specified complication, without long-term current use of insulin E11.69 Diabetes mellitus complication status: with other specified complication Diabetes mellitus press tender long goods insulin use: without fci use Diabetes mellitus type: type 2 Anxiety, generalized F41.1 Difficulty sleeping G47.9 Hypertension, essential I10 Hyponatremia E87.1 Tobacco abuse Z72.0
== END 2024-07-16 12:33 | disposition home or self-care (01) ==
PROVIDERS: PCP Internal Medicine; Visit Provider Internal Medicine
DX: E11.69 Type 2 diabetes mellitus with other specified complication (principal); F41.1 Generalized anxiety disorder; G47.9 Sleep disorder, unspecified; I10 Essential (primary) hypertension; E87.1 Hypo-osmolality and hyponatremia; Z72.0 Tobacco use
CPT/HCPCS: 83036; 99214

== ENCOUNTER 2024-10-12 11:40 | Outpatient (REF) | payer OTHER, SELFPAY ==
[2024-10-12 13:11] LABS: MANUAL DIFF FLAG NO
[2024-10-12 13:16] LABS: Basophils Absolute Auto 0.1 X10*3/uL (0.0-0.2); Basophils Percent Auto 0.5 % (0-2); Eosinophils Absolute Auto 0.1 X10*3/uL (0.0-0.4); Eosinophils Percent Auto 0.4 % (0-4); Hematocrit 41.1 % (37.0-47.0); Hemoglobin 13.8 g/dl (12.0-16.0); Imm Gran Abs Auto 0.05 X10*3/uL (0.00-0.03); Imm Gran Pct Auto 0.4 % (0.0-0.4); Lymphocytes Absolute Auto 3.3 X10*3/uL (1.2-4.9); Lymphocytes Percent Auto 29.1 % (20-40); Mean Corpuscular HGB Conc 33.6 g/dl (31.0-35.0); Mean Corpuscular Hemoglobin 28.6 pg (27.0-33.0); Mean Corpuscular Volume 85.3 fL (80.0-98.0); Mean Platelet Volume 9.9 fL (9.4-12.3); Monocytes Absolute Auto 0.8 X10*3/uL (0.1-1.2); Neutrophils Percent Auto 62.6 % (45-73); Platelet Count 304 X10*3/uL (160-400); Red Blood Count 4.82 X10*6/uL (4.20-5.50); Red Cell Distribution Width 13.7 % (11.0-16.0); White Blood Count 11.2 X10*3/uL (4.8-10.8)
[2024-10-12 13:26] LABS: Estimated Average Glucose 194 mg/dL; Hemoglobin A1C 236.0523 umol/L; Hemoglobin A1c % 8.4 % (<6.0); Total Hemoglobin (HGBA1C) 3468.9075 umol/L
[2024-10-12 13:43] LABS: Alanine Aminotransferase 24 U/L (0-31); Albumin Level 4.5 g/dL (3.5-5.0); Alkaline Phosphatase 69 U/L (39-117); Anion Gap 13 (12-20); Aspartate Amino Transferase 18 U/L (5-31); Bilirubin Total 0.3 mg/dL (0.0-1.0); Blood Urea Nitrogen 19 mg/dL (9-16); Calcium 9.8 mg/dL (8.4-10.2); Carbon Dioxide 27 mmol/L (22-29); Chloride 95 mmol/L (96-108); Estimated Glomerular Filt Rate 52; Glucose Random 234 mg/dL (60-115); Potassium 4.4 mmol/L (3.3-5.1); Sodium 131 mmol/L (135-145); Total Protein 7.4 g/dL (6.5-8.0)
[2024-10-15 15:33] LABS: LDL Cholesterol Direct 69 mg/dL (<100)
== END 2024-10-12 11:41 | disposition home or self-care (01) ==
LOC: HO.HMGCLDS 11:40
PROVIDERS: PCP Internal Medicine; Visit Provider Internal Medicine
DX: I10 Essential (primary) hypertension (principal); E11.9 Type 2 diabetes mellitus without complications; F41.1 Generalized anxiety disorder; G47.9 Sleep disorder, unspecified; E87.1 Hypo-osmolality and hyponatremia
CPT/HCPCS: 36415; 80053; 83036; 83721; 85025

== ENCOUNTER 2024-10-12 11:54 | Outpatient (AMB) | payer OTHER, SELFPAY ==
[2024-10-12 11:55] VITALS: BP 142/84; PULSE 89; O2SAT 98; BMI 25.2
--- NOTE | 2024-10-12 11:55 | A.OFFPC_ITS ---
Vital Signs 10/12/24 11:55 Height 5 ft 6.5 in Weight 158 lb 6 oz BMI 25.2 BP 142/84 H Blood Pressure Location Rt brachial Position Sitting Pulse 89 Pulse Source Pulse Oximeter Pulse Oximetry (%) 98 Oxygen Delivery Method Room Air Intake Visit Reasons: 3 mon f/u Allergies paroxetine [From Paxil] Adverse Reaction (Verified 10/12/24 11:55) Itching Medication List - Last Reconciled 10/12/24 by Carlos Alberto Zapata MD atorvastatin 40 mg PO DAILY blood sugar diagnostic (Accu-Chek Guide test strips) Test blood sugar once a day blood-glucose meter (Accu-Chek Guide Me Glucose Meter) As directed buspirone 15 mg PO TID 30 days clonazepam 0.5 mg PO BID dulaglutide 3 mg (0.5 mL) subcut QWEEK 90 days glipizide 10 mg PO BID 90 days lancets (Accu-Chek Softclix Lancets) Test blood sugar once a day lisinopril 20 mg PO DAILY metformin 1,000 mg PO BID 90 days pioglitazone (Actos) 30 mg PO DAILY trazodone 200 mg (2 x 100 mg) PO BEDTIME PRN Tobacco use date assessed: 10/12/24 Fall risk assessment: No Falls in past year Last assessed Fall Risk: 10/12/24 Dental Screening Dental Screen Date: 10/12/24 Did you have a dental visit in the last 12 months?: Yes Did you have a dental problem in the last 6 months where you did not have access to dental care?: No Was dental information given to patient?: Patient has dentist HPI 3 fri f/ HPI Details Patient is 69-year-old female came in today for regular follow-up appointment Patient is supposed to be on Trulicity 3 mg injections But she can not afford, so she has not taken any in 3 months Her hemoglobin A1c was 7.7 last visit She is due for labs, order was placed last visit but still not done Depending on hemoglobin A1c we will decide what to do next She is also on metformin 1 g b.i.d. and pioglitazone 30 mg daily, she is to continue that She also continued to smoke , however cut down to half a pack a day Blood pressure is running l high today Continue atorvastatin for lipid control Anxiety is stable with buspirone and clonazepam She is also taking trazodone to sleep at night Follow-up 3 months [facility] Medical History Anxiety Smoker Diabetes Elevated cholesterol HTN (hypertension) Surgical History Hx of colonoscopy Hx of elbow surgery Social History Housing: House Patient Tobacco Use Status: Current everyday Tobacco user Tobacco use type: Cigarette Cigarettes Per Day: 9 e-Cigarette/Vaping Use: Never Used service: No Current occupational status: disabled Cognitive needs: No Hearing needs: No Vision needs: Yes Questionnaire Thrive Questionnaire Date Thrive assessed: 07/16/24 SETH-7 AMB Questionnaire SETH-7 Date SETH - 7 assessed: 07/16/24 Source: Developed by Drs. Clyde Mendoza, Britni Narayanan, Juan Marcum and colleagues, with an educational eileen from [employer]. Review of Systems Const Denies chills and Denies fever(s) ENT Denies epistaxis and Denies nasal discharge Card Denies chest pain Resp Denies hemoptysis GI Denies diarrhea and Denies nausea Skin/Breast Denies rash Neuro Reports no additional complaints Psych Reports no additional complaints Endo Reports no additional complaints Physical exam (Primary Care) Vital Signs: Last Vital Signs Pulse 89 10/12/24 11:55 BP 142/84 H 10/12/24 11:55 Pulse Ox 98 10/12/24 11:55 Oxygen Delivery Method Room Air 10/12/24 11:55 BMI result Body Mass Index 25.2 Tobacco/Smoking Status: Tobacco use Status Tobacco use date assessed 10/12/24 10/12/24 11:56 Patient Tobacco Use Status Current everyday Tobacco 10/12/24 11:56 Tobacco use type Cigarette 10/12/24 11:56 e-Cigarette/Vaping Use Never Used 10/12/24 11:56 Thrive Assessment: Date of Thrive Assessment Date Thrive assessed 07/16/24 10/12/24 11:56 Const General: cooperative, comfortable and no acute distress Orientation/consciousness: patient oriented x3 HENMT Head: Yes normocephalic Eyes General: appearance normal, both eyes and all related structures Neck Neck: Yes supple Resp Effort & Inspection: normal respiratory effort, no cough and no stridor Cardio Rhythm: regular rhythm Heart sounds: S1 normal heart sound present and S2 normal heart sound present Skin General skin exam: turgor normal Neuro General: patient oriented x3, tone normal and moves all extremities Extrem Right lower extremity: no edema Left lower extremity: no edema Coding Level of Care Code Est Pt Level 4 (15050) Diagnoses Type 2 diabetes mellitus with other specified complication, without long-term current use of insulin E11.69 Diabetes mellitus complication status: with other specified complication Diabetes mellitus [facility] insulin use: without [facility] use Diabetes mellitus type: type 2 Anxiety, generalized F41.1 Difficulty sleeping G47.9 Hypertension, essential I10 Tobacco abuse Z72.0 Smokers' cough J41.0 Assessment & Plan Assessment & Plan (1) Diabetes mellitus: Code(s): E11.9 - Type 2 diabetes mellitus without complications Category: Medical Qualifiers: Diabetes mellitus complication status: with other specified complication Diabetes mellitus termite exterminator helper insulin use: without [facility] use Diabetes mellitus type: type 2 Qualified Code(s): E11.69 - Type 2 diabetes mellitus with other specified complication (2) Anxiety, generalized: Code(s): F41.1 - Generalized anxiety disorder Category: Medical (3) Difficulty sleeping: Code(s): G47.9 - Sleep disorder, unspecified Category: Medical (4) Hypertension, essential: Code(s): I10 - Essential (primary) hypertension Category: Medical (5) Tobacco abuse: Code(s): Z72.0 - Tobacco use Category: Medical (6) Smokers' cough: Code(s): J41.0 - Simple chronic bronchitis Category: Medical Plan Patient is 69-year-old female came in today for regular follow-up appointment Patient is supposed to be on Trulicity 3 mg injections But she can not afford, so she has not taken any in 3 months Her hemoglobin A1c was 7.7 last visit She is due for labs, order was placed last visit but still not done Depending on hemoglobin A1c we will decide what to do next She is also on metformin 1 g b.i.d. and pioglitazone 30 mg daily, she is to continue that She also continued to smoke , however cut down to half a pack a day Blood pressure is running l high today Continue atorvastatin for lipid control Anxiety is stable with buspirone and clonazepam She is also taking trazodone to sleep at night Follow-up 3 months
== END 2024-10-12 12:14 | disposition home or self-care (01) ==
PROVIDERS: PCP Internal Medicine; Visit Provider Internal Medicine
DX: E11.69 Type 2 diabetes mellitus with other specified complication (principal); J41.0 Simple chronic bronchitis; F41.1 Generalized anxiety disorder; G47.9 Sleep disorder, unspecified; I10 Essential (primary) hypertension; Z72.0 Tobacco use

== ENCOUNTER 2025-02-15 13:44 | Outpatient (REF) | payer OTHER, SELFPAY ==
[2025-02-15 16:13] LABS: MANUAL DIFF FLAG NO
[2025-02-15 16:38] LABS: Basophils Absolute Auto 0.1 X10*3/uL (0.0-0.2); Basophils Percent Auto 0.5 % (0-2); Eosinophils Percent Auto 0.3 % (0-4); Hematocrit 43.9 % (37.0-47.0); Hemoglobin 14.5 g/dl (12.0-16.0); Imm Gran Abs Auto 0.04 X10*3/uL (0.00-0.03); Imm Gran Pct Auto 0.4 % (0.0-0.4); Lymphocytes Absolute Auto 2.5 X10*3/uL (1.2-4.9); Lymphocytes Percent Auto 23.8 % (20-40); Mean Corpuscular Hemoglobin 28.4 pg (27.0-33.0); Mean Corpuscular Volume 86.1 fL (80.0-98.0); Mean Platelet Volume 10.9 fL (9.4-12.3); Monocytes Absolute Auto 0.7 X10*3/uL (0.1-1.2); Platelet Count 270 X10*3/uL (160-400); Red Cell Distribution Width 13.8 % (11.0-16.0); White Blood Count 10.3 X10*3/uL (4.8-10.8)
--- OUTSIDE RECORDS SUMMARY | 2025-02-15 17:25 | XMS_ITS | Clinical Summary ---
Author Organization [facility] Address [address] [place] [address] Care Team Providers Care Gas Plant Dispatcher Name Role Phone Unavailable Primary Care Provider [...] Plan of Treatment Not on file Insurance [facility] SAFET[employer] NET DENTAL
[2025-02-15 18:06] LABS: Alanine Aminotransferase 13 U/L (0-31); Albumin Level 4.5 g/dL (3.5-5.0); Alkaline Phosphatase 64 U/L (39-117); Anion Gap 12 (12-20); Aspartate Amino Transferase 18 U/L (5-31); Bilirubin Total 0.3 mg/dL (0.0-1.0); Blood Urea Nitrogen 7 mg/dL (9-16); Calcium 9.6 mg/dL (8.4-10.2); Carbon Dioxide 26 mmol/L (22-29); Chloride 102 mmol/L (96-108); Estimated Glomerular Filt Rate > 60; Glucose Random 178 mg/dL (60-115); Potassium 3.8 mmol/L (3.3-5.1); Sodium 136 mmol/L (135-145); Total Protein 7.4 g/dL (6.5-8.0)
[2025-02-15 18:30] LABS: Estimated Average Glucose 237 mg/dL; Hemoglobin A1C 325.8972 umol/L; Hemoglobin A1c % 9.9 % (<6.0); Total Hemoglobin (HGBA1C) 3830.7997 umol/L
[2025-02-16 16:05] LABS: LDL Cholesterol Direct 76 mg/dL (<100)
== END 2025-02-15 13:45 | disposition home or self-care (01) ==
LOC: HO.HMGCLDS 13:44
PROVIDERS: PCP Internal Medicine; Visit Provider Internal Medicine
DX: Z00.01 Encounter for general adult medical examination with abnormal findings (principal); E11.69 Type 2 diabetes mellitus with other specified complication; F41.1 Generalized anxiety disorder; G47.9 Sleep disorder, unspecified; I10 Essential (primary) hypertension; J41.0 Simple chronic bronchitis; F10.20 Alcohol dependence, uncomplicated; Z72.0 Tobacco use
CPT/HCPCS: 36415; 80053; 83036; 83721; 85025; 96127

== ENCOUNTER 2025-02-15 13:44 | Outpatient (AMB) | payer OTHER, SELFPAY ==
--- NOTE | 2025-02-15 13:58 | A.OFFPC_ITS ---
Vital Signs 02/15/25 13:59 Height 5 ft 6.5 in Weight 159 lb 8 oz BMI 25.4 BP 130/82 Blood Pressure Location Rt brachial Position Sitting Respiration 18 Pulse 97 Pulse Source Pulse Oximeter Temp 98.2 F Temp Source Oral Pulse Oximetry (%) 95 Oxygen Delivery Method Room Air Intake Visit Reasons: Annual PE Allergies paroxetine [From Paxil] Adverse Reaction (Verified 02/15/25 13:59) Itching Medication List - Last Reconciled 02/15/25 by Carlos Alberto Zapata MD atorvastatin 40 mg PO DAILY blood sugar diagnostic (Accu-Chek Guide test strips) Test blood sugar once a day blood-glucose meter (Accu-Chek Guide Me Glucose Meter) As directed buspirone 15 mg PO TID 30 days clonazepam 0.5 mg PO BID dulaglutide 3 mg (0.5 mL) subcut QWEEK 90 days glipizide 10 mg PO BID 90 days lancets (Accu-Chek Softclix Lancets) Test blood sugar once a day lisinopril 20 mg PO DAILY metformin 1,000 mg PO BID 90 days pioglitazone (Actos) 30 mg PO DAILY trazodone 200 mg (2 x 100 mg) PO BEDTIME PRN Tobacco use date assessed: 02/15/25 Fall risk assessment: No Falls in past year Last assessed Fall Risk: 02/15/25 Dental Screening Dental Screen Date: 02/15/25 Did you have a dental visit in the last 12 months?: Yes Did you have a dental problem in the last 6 months where you did not have access to dental care?: No Was dental information given to patient?: Patient has dentist HPI Annual PE HPI Details patient is a 69-year-old female came in today for physical examination She has been feeling dizzy since this morning Patient is diabetic and is not taking her Trulicity as she can not afford it she is not monitoring the sugar as well, when I ask her why she said machine does not work She is going to bring her machine along in 2 weeks to see if she knows how to check Patient has been drinking fidel Smoking as well Her sodium has chronically low She is due for labs She seems drowsy today We need to monitor the sodium closely Once again patient was instructed to stop drinking and smoking as soon as possible And it is highly important that she treat her diabetes seriously She says that insurance is not paying for Trulicity and she can not afford it Colonoscopy was 2 years ago [facility] She does not want to do mammogram or see OBGYN She will return in 2 weeks for follow-up appointment [facility] Medical History Anxiety Smoker Diabetes Elevated cholesterol HTN (hypertension) Surgical History Hx of colonoscopy Hx of elbow surgery Social History Housing: House Patient Tobacco Use Status: Current everyday Tobacco user Tobacco use type: Cigarette Cigarettes Per Day: 9 e-Cigarette/Vaping Use: Never Used service: No Current occupational status: disabled Cognitive needs: No Hearing needs: No Vision needs: Yes Questionnaire PHQ-9 Over the last 2 weeks, how often have you been bothered by any of the following problems? 23365 - PHQ-9 Billing: Patient declined-do not bill Source: Developed by Drs. Clyde Mendoza, Juan Tellez and colleagues, with an educational eileen from [employer]. Thrive Questionnaire Date Thrive assessed: 02/15/25 AUDIT C Alcohol Use Questionnaire (AUDIT-C) 1. How often do you have a drink containing alcohol?: Never 3. How often do you have six or more drinks on one occasion?: Never Total Score: 0 Score Reviewed/Action Taken: Yes SETH-7 AMB Questionnaire SETH-7 Date SETH - 7 assessed: 02/15/25 Feeling nervous, anxious, or on edge: 0 = Not at all Not being able to stop or control worryin = Not at all Worrying too much about different things: 0 = Not at all Trouble relaxin = Not at all Being so restless that it is hard to sit still: 0 = Not at all Becoming easily annoyed or irritable: 0 = Not at all Feeling afraid as if something awful might happen: 0 = Not at all Total SETH-7 score (0-4 normal; 5-9 mild; 10-14 moderate; 15-21 severe): 0 Source: Developed by Drs. Clyde Mendoza, Juan Tellez and colleagues, with an educational eileen from [employer]. SETH-7 Assessment Billing SETH-7 Assessment Tool: SETH-7 Assessment 29046 Review of Systems Const Denies chills, Denies fever(s) and Denies headache(s) Eyes Denies blurry vision ENT Denies headache(s), Denies nasal discharge, Denies nasal obstruction, Denies odynophagia and Denies sinus pain Card Denies chest pain at rest and Denies chest pain with activity Resp Denies cough and Denies hemoptysis GI Denies diarrhea, Denies odynophagia, Denies vomiting and Denies hematemesis Reports as per HPI Musc Denies abnormal gait Skin/Breast Reports as per HPI Neuro Denies Neuro-related abnormal movements, Denies Abnormal speech present, Denies abnormal gait and Denies headache(s) Psych Denies mood swings and Denies paranoia Endo Reports as per HPI Truman/Lymph Reports as per HPI Aller/Immun Reports as per HPI Physical exam (Primary Care) Vital Signs: Last Vital Signs Temp 98.2 F 02/15/25 13:59 Pulse 97 02/15/25 13:59 Resp 18 02/15/25 13:59 BP 130/82 02/15/25 13:59 Pulse Ox 95 02/15/25 13:59 Oxygen Delivery Method Room Air 02/15/25 13:59 BMI result Body Mass Index 25.4 Tobacco/Smoking Status: Tobacco use Status Tobacco use date assessed 02/15/25 02/15/25 14:00 Patient Tobacco Use Status Current everyday Tobacco 02/15/25 13:58 Tobacco use type Cigarette 02/15/25 13:58 e-Cigarette/Vaping Use Never Used 02/15/25 13:58 Thrive Assessment: Date of Thrive Assessment Date Thrive assessed 02/15/25 02/15/25 14:00 Const General: cooperative, comfortable and no acute distress Orientation/consciousness: patient oriented x3 HENMT Head: Yes normocephalic and Yes atraumatic Eyes General: appearance normal, both eyes and all related structures Pupils: Equal, round and reactive pupils present EOM: EOMs intact bilaterally Neck Neck: Yes supple and No lymphadenopathy Thyroid: Thyroid normal Lymphatic: no lymphadenopathy noted Resp Effort & Inspection: normal respiratory effort and able to speak in complete sentences Auscultation: clear to auscultation bilaterally Cardio Heart sounds: S1 normal heart sound present and S2 normal heart sound present GI Palpation (GI): Soft to palpation and nontender Auscultation: normal bowel sounds General: Yes no CVA tenderness Back/Spine/Pelvis Back: no CVA tenderness Skin General skin exam: elasticity normal and turgor normal Neuro General: patient oriented x3 and gait normal Cranial nerves: Yes Equal, round and reactive pupils present Speech: No Abnormal speech present Extrem General: Yes normal exam except as noted and No edema Coding Level of Care Code Est Pt Level 4 (77091) Est Pt Prev Care >65y(81461) Diagnoses Encounter for general adult medical examination with abnormal findings Z00.01 Type 2 diabetes mellitus with other specified complication, without long-term current use of insulin E11.69 Diabetes mellitus complication status: with other specified complication Diabetes mellitus custodial insulin use: without custodial use Diabetes mellitus type: type 2 Anxiety, generalized F41.1 Difficulty sleeping G47.9 Hypertension, essential I10 Tobacco abuse Z72.0 Smokers' cough J41.0 Alcoholism F10.20 Additional Codes SETH-7 Assessment Billing - SETH-7 Assessment Tool: SETH-7 Assessment 32311 ([id number]) Assessment & Plan Assessment & Plan (1) Encounter for general adult medical examination with abnormal findings: Code(s): Z00.01 - Encounter for general adult medical examination with abnormal findings Category: Medical (2) Diabetes mellitus: Code(s): E11.9 - Type 2 diabetes mellitus without complications Category: Medical Qualifiers: Diabetes mellitus complication status: with other specified complication Diabetes mellitus custodial insulin use: without custodial use Diabetes mellitus type: type 2 Qualified Code(s): E11.69 - Type 2 diabetes mellitus with other specified complication (3) Anxiety, generalized: Code(s): F41.1 - Generalized anxiety disorder Category: Medical (4) Difficulty sleeping: Code(s): G47.9 - Sleep disorder, unspecified Category: Medical (5) Hypertension, essential: Code(s): I10 - Essential (primary) hypertension Category: Medical (6) Tobacco abuse: Code(s): Z72.0 - Tobacco use Category: Medical (7) Smokers' cough: Code(s): J41.0 - Simple chronic bronchitis Category: Medical (8) Alcoholism: Code(s): F10.20 - Alcohol dependence, uncomplicated Category: Medical Plan patient is a 69-year-old female came in today for physical examination She has been feeling dizzy since this morning Patient is diabetic and is not taking her Trulicity as she can not afford it she is not monitoring the sugar as well, when I ask her why she said machine does not work She is going to bring her machine along in 2 weeks to see if she knows how to ch sung Patient has been drinking fidel Smoking as well Her sodium has chronically low She is due for labs She seems drowsy today We need to monitor the sodium closely Once again patient was instructed to stop drinking and smoking as soon as possible And it is highly important that she treat her diabetes seriously She says that insurance is not paying for Trulicity and she can not afford it Colonoscopy was 2 years ago [facility] She does not want to do mammogram or see OBGYN She will return in 2 weeks for follow-up appointment Orders: Orders Hemoglobin A1c Today - Type 2 diabetes mellitus with other specified complication, F41.1 - Generalized anxiety disorder, G47.9 - Sleep disorder, unspecified, I10 - Essential (primary) hypertension, J41.0 - Simple chronic bronchitis, Z00.01 - Encounter for general adult medical examination with abnormal findings, Z72.0 - Tobacco use Comprehensive Met. Panel Today - Type 2 diabetes mellitus with other specified complication, F41.1 - Generalized anxiety disorder, G47.9 - Sleep disorder, unspecified, I10 - Essential (primary) hypertension, J41.0 - Simple chronic bronchitis, Z00.01 - Encounter for general adult medical examination with abnormal findings, Z72.0 - Tobacco use Microalbumin, Random (w Creat) Today - Type 2 diabetes mellitus with other specified complication, F41.1 - Generalized anxiety disorder, G47.9 - Sleep disorder, unspecified, I10 - Essential (primary) hypertension, J41.0 - Simple chronic bronchitis, Z00.01 - Encounter for general adult medical examination with abnormal findings, Z72.0 - Tobacco use Complete Blood Count Auto Diff Today - Type 2 diabetes mellitus with other specified complication, F41.1 - Generalized anxiety disorder, G47.9 - Sleep disorder, unspecified, I10 - Essential (primary) hypertension, J41.0 - Simple chronic bronchitis, Z00.01 - Encounter for general adult medical examination with abnormal findings, Z72.0 - Tobacco use LDL Cholesterol Direct Today E11.69 - Type 2 diabetes mellitus with other specified complication, F41.1 - Generalized anxiety disorder, G47.9 - Sleep disorder, unspecified, I10 - Essential (primary) hypertension, J41.0 - Simple chronic bronchitis, Z00.01 - Encounter for general adult medical examination with abnormal findings, Z72.0 - Tobacco use Medications: New insulin lispro (Humalog U-100 Insulin) 15 units (0.15 mL) subcut TID 30 days 13.5 mL 0RF
[2025-02-15 13:59] VITALS: BP 130/82; PULSE 97; RESP 18; TEMP 36.8; O2SAT 95; BMI 25.4
--- OUTSIDE RECORDS SUMMARY | 2025-02-15 16:22 | XMS_ITS | Clinical Summary ---
Author Organization [facility] Address [address] [place] [address] Care Team Providers Care Air Twister Winder Name Role Phone Unavailable Primary Care Provider Unavailabl e Source Comments PLEASE NOTE, if this patient is a minor, it may be UNLAWFUL to discuss sensitive information that is contained in these records (such as FAMILY PLANNING, MENTAL HEALTH or SUBSTANCE ABUSE) with the minor patient's parent or other person without the patient's specific authorization.[facility] Medications acetaminophen (TYLENOL) 500 mg tablet Take 1 Tablet by mouth every 6 (six) hours as needed for pain 20 Tablet 06/05/2021 Active Social History Tobacco Use Types Packs/Day Years Used Date Smoking Tobacco: Never Assessed Social Connections Answer Date Recorded Social Connections and Isolation 0 01/17/2022 Financial Resource Strain Answer Date R ecorded Financial Resource Strain 0 2021 Stress Answer Date Recorded Stress 0 01/17/2022 Physical Activity Answer Date Recorded Physical Activity 0 01/17/2022 Food Insecurity Answer Date Recorded Food 0 01/17/2022 Transportation Needs Answer Date Record ed Transportation 0 01/17/2022 Housing Stability Answer Date Recorded Housing 0 01/17/2022 Safety and Environment Answer Date Lasha rded Safety 0 01/17/2022 Utilities Answer Date Recorded Utilities 0 01/17/2022 Employment Answer Date Recorded Employment 0 01/17/2022 Comments Unknown Sex and Gender Information Value Date Recorded Sex Assigned at Not on file Legal Sex Female 7:31 AM PDT Gender Identity Not on file Sexual Orientation Not on file Plan of Treatment Not on file Insurance [facility] SAFETY NET DENTAL
== END 2025-02-15 14:41 | disposition home or self-care (01) ==
LOC: HO.HMCC 13:45
PROVIDERS: PCP Internal Medicine; Visit Provider Internal Medicine
DX: Z00.01 Encounter for general adult medical examination with abnormal findings (principal); E11.69 Type 2 diabetes mellitus with other specified complication; J41.0 Simple chronic bronchitis; F10.20 Alcohol dependence, uncomplicated; F41.1 Generalized anxiety disorder; G47.9 Sleep disorder, unspecified; I10 Essential (primary) hypertension; Z72.0 Tobacco use

== ENCOUNTER 2025-03-30 10:04 | Outpatient (AMB) | payer OTHER, SELFPAY ==
--- NOTE | 2025-03-30 10:07 | MHC.PC.OV ---
Vital Signs 03/30/25 10:08 Height 5 ft 6.5 in Weight 164 lb 6 oz BMI 26.1 BP 152/94 H Blood Pressure Location Lt brachial Position Sitting Pulse 84 Pulse Source Pulse Oximeter Pulse Oximetry (%) 96 Intake Visit Reasons: Meds review Allergies paroxetine [From Paxil] Adverse Reaction (Verified 03/30/25 10:08) Itching Medication List - Last Reconciled 03/30/25 by Carlos Alberto Zapata MD atorvastatin 40 mg PO DAILY blood sugar diagnostic (Accu-Chek Guide test strips) Test blood sugar once a day blood-glucose meter (Accu-Chek Guide Me Glucose Meter) As directed buspirone 15 mg PO TID 30 days clonazepam 0.5 mg PO BID dulaglutide 3 mg (0.5 mL) subcut QWEEK 90 days glipizide 10 mg PO BID 90 days insulin lispro (Humalog U-100 Insulin) 15 units (0.15 mL) subcut TID 30 days lancets (Accu-Chek Softclix Lancets) Test blood sugar once a day lisinopril 20 mg PO DAILY metformin 1,000 mg PO BID 90 days pioglitazone (Actos) 30 mg PO DAILY trazodone 200 mg (2 x 100 mg) PO BEDTIME PRN Tobacco use date assessed: 03/30/25 Fall risk assessment: No Falls in past year Last assessed Fall Risk: 03/30/25 Dental Screening Dental Screen Date: 03/30/25 Did you have a dental visit in the last 12 months?: No Did you have a dental problem in the last 6 months where you did not have access to dental care?: No Was dental information given to patient?: Patient has dentist HPI Meds review HPI Details History - The patient is a 69-year-old female presenting with a follow-up appointment for management of Type 2 Diabetes Mellitus. - The patient reports feeling better since the last visit, which was two weeks ago. - The patient is currently on short acting insulin treatment, administering three doses daily, with each dose consisting of four units. - The patient was previously prescribed Trulicity but did not obtain it due to lack of insurance coverage. - The most recent hemoglobin A1c was 9.9%, indicating poor glycemic control. - The patient expresses financial difficulties in affording insulin, despite it being cheaper, and mentions [id number] costs impacting her ability to pay. - her electrolyte levels, kidney function, liver enzymes, cholesterol, and blood counts were reported as normal at the last visit. - Concern regarding hair loss was expressed, along with a query about the thyroid?s possible contribution to this symptom. - she does not want to do another blood test today I have added it to her next set of labs to be done in 3 months before visit. Problem List - Type 2 Diabetes Mellitus - Hair Loss - financial difficulties Patient Instructions - Continue taking insulin as prescribed, using the sliding scale for dosage adjustments. - Reach out to [employer] to clarify insurance coverage regarding medications. - Schedule an appointment to evaluate thyroid function during the next visit. - Follow-up appointment adjusted to June to allow adequate time since the last assessment. Review of Systems - General: No fever no chills - Neurological: No headaches no dizziness - Ear nose throat: No sore throat no hearing difficulty no ear pain - Cardiovascular: No syncope, no chest pain, no palpitations - Gastrointestinal: No nausea vomiting or diarrhea - Endocrine: No polyuria polydipsia no heat intolerance - Genitourinary: No dysuria , no blood in urine Physical Exam - General: No acute distress - HEENT: No acute findings - Neck: Supple - Respiratory system: Able to talk in full sentences, no audible wheeze - Cardiovascular: S1-S2 regular in rate and rhythm - Gastrointestinal: No pain - Extremities: No new findings - DIRECTOR OF LEADERSHIP DEVELOPMENT: Alert awake oriented x3 motor sensory intact - Skin: Normal turgor PFSH Medical History Anxiety Smoker Diabetes Elevated cholesterol HTN (hypertension) Surgical History Hx of colonoscopy Hx of elbow surgery Social History Housing: House Patient Tobacco Use Status: Current everyday Tobacco user Tobacco use type: Cigarette Cigarettes Per Day: 9 e-Cigarette/Vaping Use: Never Used service: No Current occupational status: disabled Cognitive needs: No Hearing needs: No Vision needs: Yes Questionnaire Thrive Questionnaire Date Thrive assessed: 02/15/25 AUDIT C Alcohol Use Questionnaire (AUDIT-C) 1. How often do you have a drink containing alcohol?: Never 3. How often do you have six or more drinks on one occasion?: Never Total Score: 0 Score Reviewed/Action Taken: Yes SETH-7 AMB Questionnaire SETH-7 Date SETH - 7 assessed: 02/15/25 Source: Developed by Drs. Clyde Mendoza, Britni Narayanan, Juan Marcum and colleagues, with an educational eileen from [employer]. Physical exam (Primary Care) Vital Signs: Last Vital Signs Pulse 84 03/30/25 10:08 BP 152/94 H 03/30/25 10:08 Pulse Ox 96 03/30/25 10:08 BMI result Body Mass Index 26.1 Tobacco/Smoking Status: Tobacco use Status Tobacco use date assessed 03/30/25 03/30/25 10:10 Patient Tobacco Use Status Current everyday Tobacco 03/30/25 10:10 Tobacco use type Cigarette 03/30/25 10:10 e-Cigarette/Vaping Use Never Used 03/30/25 10:10 Thrive Assessment: Date of Thrive Assessment Date Thrive assessed 02/15/25 03/30/25 10:10 Coding Level of Care Code Est Pt Level 3 (18759) Diagnoses Type 2 diabetes mellitus with other specified complication, without long-term current use of insulin E11.69 Diabetes mellitus complication status: with other specified complication Diabetes mellitus detention insulin use: without press tender long goods use Diabetes mellitus type: type 2 Falling hair L65.9 Assessment & Plan Assessment & Plan (1) Diabetes mellitus: Code(s): E11.9 - Type 2 diabetes mellitus without complications Category: Medical Qualifiers: Diabetes mellitus complication status: with other specified complication Diabetes mellitus press tender long goods insulin use: without detention use Diabetes mellitus type: type 2 Qualified Code(s): E11.69 - Type 2 diabetes mellitus with other specified complication (2) Falling hair: Code(s): L65.9 - Nonscarring hair loss, unspecified Category: Medical Plan History - The patient is a 69-year-old female presenting with a follow-up appointment for management of Type 2 Diabetes Mellitus. - The patient reports feeling better since the last visit, which was two weeks ago. - The patient is currently on short acting insulin treatment, administering three doses daily, with each dose consisting of four units. - The patient was previously prescribed Trulicity but did not obtain it due to lack of insurance coverage. - The most recent hemoglobin A1c was 9.9%, indicating poor glycemic control. - The patient expresses financial difficulties in affording insulin, despite it being cheaper, and mentions [id number] costs impacting her ability to pay. - her electrolyte levels, kidney function, liver enzymes, cholesterol, and blood counts were reported as normal at the last visit. - Concern regarding hair loss was expressed, along with a query about the thyroid?s possible contribution to this symptom. - she does not want to do another blood test today I have added it to her next set of labs to be done in 3 months before visit. Problem List - Type 2 Diabetes Mellitus - Hair Loss - financial difficulties Patient Instructions - Continue taking insulin as prescribed, using the sliding scale for dosage adjustments. - Reach out to [employer] to clarify insurance coverage regarding medications. - Schedule an appointment to evaluate thyroid function during the next visit. - Follow-up appointment adjusted to June to allow adequate time since the last assessment. Orders: Orders Hemoglobin A1c 3 Months . - Type 2 diabetes mellitus with other specified complication, L65.9 - Nonscarring hair loss, unspecified TSH reflex Free T4 3 Months . - Type 2 diabetes mellitus with other specified complication, L65.9 - Nonscarring hair loss, unspecified Comprehensive Met. Panel 3 Months . - Type 2 diabetes mellitus with other specified complication, L65.9 - Nonscarring hair loss, unspecified Microalbumin, Random (w Creat) 3 Months . - Type 2 diabetes mellitus with other specified complication
[2025-03-30 10:08] VITALS: BP 152/94; PULSE 84; O2SAT 96; BMI 26.1
--- OUTSIDE RECORDS SUMMARY | 2025-03-30 11:00 | XMS_ITS | Clinical Summary ---
Author Organization [facility] Address [address] [place] [address] Care Team Providers Care Color Print Inspector Name Role Phone Unavailable Primary Care Provider [...] Plan of Treatment Not on file Insurance [facility] SAFETY NET DENTAL
== END 2025-03-30 10:24 | disposition home or self-care (01) ==
LOC: HO.HMCC 10:05
PROVIDERS: PCP Internal Medicine; Visit Provider Internal Medicine
DX: E11.69 Type 2 diabetes mellitus with other specified complication (principal); L65.9 Nonscarring hair loss, unspecified

== ENCOUNTER → 2025-03-30 10:04 | Outpatient (BNVA) | payer OTHER, SELFPAY | PROVIDERS: PCP Internal Medicine; Visit Provider Internal Medicine | DX: Z13.89 Encounter for screening for other disorder (principal) ==

== ENCOUNTER 2025-06-22 12:03 | Outpatient (AMB) | payer OTHER, SELFPAY ==
--- NOTE | 2025-06-22 12:15 | A.OFFPC_ITS ---
Vital Signs 06/22/25 12:17 Height 5 ft 6.5 in Weight 163 lb BMI 25.9 BP 140/82 H Blood Pressure Location Lt brachial Position Sitting Pulse 79 Pulse Source Pulse Oximeter Pulse Oximetry (%) 97 Intake Visit Reasons: 3 month follow up Allergies paroxetine (From Paxil) Adverse Reaction (Verified 06/22/25 12:17) Itching Medication List - Last Reconciled 06/22/25 by Carlos Alberto Zapata MD atorvastatin 40 mg PO DAILY blood sugar diagnostic (OneTouch Verio test strips) Test blood sugar once a day buspirone 15 mg PO TID 30 days clonazepam 0.5 mg PO BID glipizide 10 mg PO BID 90 days insulin lispro (Humalog U-100 Insulin) 15 units (0.15 mL) subcut TID 30 days lancets (Accu-Chek Softclix Lancets) Test blood sugar once a day lisinopril 20 mg PO DAILY metformin 1,000 mg PO BID 90 days pioglitazone (Actos) 30 mg PO DAILY trazodone 200 mg (2 x 100 mg) PO BEDTIME PRN Tobacco use date assessed: 03/30/25 Fall risk assessment: No Falls in past year Last assessed Fall Risk: 06/22/25 Dental Screening Dental Screen Date: 03/30/25 HPI 3 month follow up HPI Details Chief Complaint The patient reports high blood sugar levels with an A1c of 9.9 and an ongoing smoking habit. History of Present Illness The patient is a 69-year-old female presenting with elevated blood sugar levels and tobacco use. Diabetes Mellitus: - The patient reports her fasting blood glucose is running high at 275 mg/dL. - She is aware that her last HbA1c recor ded in February was 9.9%. - The patient has knowledge of the need to reduce sweet intake. - She is managing her diabetes with glip izide, insulin, and metformin 1 g BID. - The patient expresses confidence in co ntrolling her diet as an alternative to increasing insulin dosage. Tobacco Use Disorder: - The patient admits to smoking approxim ately 8 cigarettes per day. - She recognizes having a ?smoker?s coug h.? - No cessation measures are currently be ing followed. Hypertension: - The patient was informed of a slightly elevated blood pressure reading during the visit, recorded at 140/82 mmHg. - Management includes lisinopril 20 mg. Medical History: - Hypertension - Diabetes Mellitus Type 2 - Tobacco Use Disorder - Anxiety Disorder (managed with buspiro ne) - History of insomnia, treated with traz odone - Past use of clonazepam for anxiety Medications: - Atorvastatin for hyperlipidemia - Buspirone for anxiety - Clonazepam for anxiety - Glipizide for diabetes - Insulin for diabetes - Metformin 1 g BID for diabetes - Lisinopril 20 mg for hypertension - Trazodone for insomnia Social History: - Smokes approximately 8 cigarettes jude y, contributing to a chronic smoker's cough. - Reports efforts to manage diabetes by controlling diet, aware of the need to reduce sweet intake. - Consumes watermelon as part of her t, but reports recent consumption of sweets like ice cream. Family History: - , Du, is mentioned but no s pecific familial health history discussed. Diagnostic Results: - Labs: - Previous A1c of 9.9% in February - Fasting blood glucose running at 275 m g/dL reported Problem List - Uncontrolled Type 2 Diabetes Mellitus - Tobacco Use Disorder - Hypertension - Anxiety Disorder Patient Instructions - Make efforts to stop smoking or cut do wn significantly. - Focus on controlling dietary sugar int josh to manage diabetes. - Complete labs before the next visit in three months. - No fasting required for upcoming labs; ensure blood is drawn before 3:00 PM. Medical Decision Making The patient presents with uncontrolled diabetes mellitus, with a fasting glucose of 275 mg/dL and an A1c of 9.9% as recorded in the previous months. Dietary a dherence and lifestyle modification are considered primary interventions. The plan to manage the raised blood sugar includes rather than increasing insulin dosage, stressing patient lifestyle modifications. The patient is advised to reduce sweet intake and ensure nutritional management. Tobacco use continues to contribute to her smoker?s cough, emphasizing the need for smoking cessation strategies. Management of hypertension incorporates ongoing use of lisinopril with a focus on lifestyle changes. The overall goal is to stabilize the patient's blood glucose, blood pressure, and minimize the risk of complications from chronic conditions. Review of Systems - General: No fever no chills - Neurological: No headaches no dizziness - Ear nose throat: No sore throat no hearing difficulty no ear pain - Cardiovascular: No syncope, no chest pain, no palpitations - Gastrointestinal: No nausea vomiting or diarrhea - Endocrine: No polyuria polydipsia no heat intolerance - Genitourinary: No dysuria , no blood in urine Physical Exam General: No acute distress HEENT: No acute findings Neck: Supple Respiratory system: Smoker's cough present, fair air entry Cardiovascular: S1-S2 regular in rate and rhythm Gastrointestinal: No pain Extremities: No new findings PIN CLEANER: Alert awake oriented x3 motor intact, sensory deficit present lower extremity Skin: Normal turgor PFSH Medical History Anxiety Smoker Diabetes Elevated cholesterol HTN (hypertension) Surgical History Hx of colonoscopy Hx of elbow surgery Social History Housing: House Patient Tobacco Use Status: Current everyday Tobacco user Tobacco use type: Cigarette Cigarettes Per Day: 9 e-Cigarette/Vaping Use: Never Used service: No Current occupational status: disabled Cognitive needs: No Hearing needs: No Vision needs: Yes Questionnaire PHQ-9 Over the last 2 weeks, how often have you been bothered by any of the following problems? 1. Little interest or pleasure in doing things: not at all 2. Feeling down, depressed, or hopeless: not at all 3. Trouble falling or staying asleep, or sleeping too much: not at all 4. Feeling tired or having little energy: not at all 5. Poor appetite or overeating: not at all 6. Feeling bad about yourself - or that you are a failure or have let yourself or your family down: not at all 7. Trouble concentrating on things, such as reading the newspaper or watching television: not at all 8. Moving or speaking so slowly that other people could have noticed. Or the opposite - being so fidgety or restless that you have been moving around a lot more than usual: not at all 9. Thoughts that you would be better off or of hurting yourself in some way: not at all Total score: 0 Depression Screening Interpretation: Negative Depression Screening Done: Yes 78613 - PHQ-9 Billing: Yes Source: Developed by Drs. Clyde Mendoza, Britni Narayanan, Juan Marcum and colleagues, with an educational eileen from [employer]. Thrive Questionnaire Date Thrive assessed: 06/22/25 I am a: Patient What is your living situation today?: I have a steady place to live Within the past 12 months, did the food you bought not last and you didn't have the money to get more?: Never true Within the past 12 months, did you worry whether your food would run out before you got money to buy more?: Never true Do you have trouble paying for medicines?: No Do you have trouble getting transportation to medical appointments?: No Do you have trouble paying your heating and electricity bill?: No Do you have trouble taking care of your child, family member or friend?: No Do you have trouble with day-to-day activities such as bathing, preparing meals, shopping, managing finances, etc.?: No Are you currently unemployed and looking for a job?: No Are you interested in more education?: No Please select the resources that you would like help with: None Currently or been in a relationship where the following occur: No concerns reported THRIVE Score: 0 AUDIT C Alcohol Use Questionnaire (AUDIT-C) 1. How often do you have a drink containing alcohol?: Never 3. How often do you have six or more drinks on one occasion?: Never Total Score: 0 Score Reviewed/Action Taken: Yes SETH-7 AMB Questionnaire SETH-7 Date SETH - 7 assessed: 06/22/25 Feeling nervous, anxious, or on edge: 0 = Not at all Not being able to stop or control worryin = Not at all Worrying too much about different things: 0 = Not at all Trouble relaxin = Not at all Being so restless that it is hard to sit still: 0 = Not at all Becoming easily annoyed or irritable: 0 = Not at all Feeling afraid as if something awful might happen: 0 = Not at all Total SETH-7 score (0-4 normal; 5-9 mild; 10-14 moderate; 15-21 severe): 0 Source: Developed by Drs. Clyde Mendoza, Britni Narayanan, Juan Marcum and colleagues, with an educational eileen from [employer] SETH-7 Assessment Billing SETH-7 Assessment Tool: SETH-7 Assessment 13754 Physical exam (Primary Care) Vital Signs: Last Vital Signs Pulse 79 06/22/25 12:17 BP 140/82 H 06/22/25 12:17 Pulse Ox 97 06/22/25 12:17 BMI result Body Mass Index 25.9 Tobacco/Smoking Status: Tobacco use Status Tobacco use date assessed 03/30/25 06/22/25 12:16 Patient Tobacco Use Status Current everyday Tobacco 06/22/25 12:16 Tobacco use type Cigarette 06/22/25 12:16 e-Cigarette/Vaping Use Never Used 06/22/25 12:16 PHQ-9: PHQ-9 Score PHQ-9: Total score 0 06/22/25 12:32 Depression Screening Interpretation: Negative Thrive Assessment: Date of Thrive Assessment Date Thrive assessed 06/22/25 06/22/25 12:20 Currently or been in a relationship where the following occur: No concerns reported Results AMB Hemoglobin A1c AMB Hemoglobin A1c 8.6 % Last Edit by López Garner CMA on 06/22/25 12: 31 Results Reviewed Results Reviewed: Laboratory Last Values Hgb A1c (Clinic) 8.6 % (4.0-6.0) H 06/22/25 12:29 Coding Level of Care Code Est Pt Level 4 (27647) Diagnoses Uncontrolled type 2 diabetes mellitus with hyperglycemia E11.65 Diabetes mellitus type: type 2 Glycemic state: with hyperglycemia Dietary noncompliance Z91.119 Anxiety, generalized F41.1 Difficulty sleeping G47.9 Hypertension, essential I10 Tobacco abuse Z72.0 Smokers' cough J41.0 Alcoholism F10.20 Additional Codes SETH-7 Assessment Billing - SETH-7 Assessment Tool: SETH-7 Assessment [id number] ([id number]) PHQ-9 - 69877 - PHQ-9 Billing: Yes ([id number]) Assessment & Plan Assessment & Plan (1) Uncontrolled diabetes mellitus: Category: Medical Qualifiers: Diabetes mellitus type: type 2 Glycemic state: with hyperglycemia Qualified Code(s): E11.65 - Type 2 diabetes mellitus with hyperglycemia (2) Dietary noncompliance: Code(s): Z91.119 - Patient's noncompliance with dietary regimen due to unspecified reason Category: Medical (3) Anxiety, generalized: Code(s): F41.1 - Generalized anxiety disorder Category: Medical (4) Difficulty sleeping: Code(s): G47.9 - Sleep disorder, unspecified Category: Medical (5) Hypertension, essential: Code(s): I10 - Essential (primary) hypertension Category: Medical (6) Tobacco abuse: Code(s): Z72.0 - Tobacco use Category: Medical (7) Smokers' cough: Code(s): J41.0 - Simple chronic bronchitis Category: Medical (8) Alcoholism: Code(s): F10.20 - Alcohol dependence, uncomplicated Category: Medical Plan Chief Complaint The patient reports high blood sugar levels with an A1c of 9.9 and an ongoing smoking habit. History of Present Illness The patient is a 69-year-old female presenting with elevated blood sugar levels and tobacco use. Diabetes Mellitus: - The patient reports her fasting blood glucose is running high at 275 mg/dL. - She is aware that her last HbA1c recorded in February was 9.9%. - The patient has knowledge of the need to reduce sweet intake. - She is managing her diabetes with glipizide, insulin, and metformin 1 g BID. - The patient expresses confidence in controlling her diet as an alternative to increasing insulin dosage. Tobacco Use Disorder: - The patient admits to smoking approximately 8 cigarettes per day. - She recognizes having a ?smoker?s cough.? - No cessation measures are currently being followed. Hypertension: - The patient was informed of a slightly elevated blood pressure reading during the visit, recorded at 140/82 mmHg. - Management includes lisinopril 20 mg. Medical History: - Hypertension - Diabetes Mellitus Type 2 - Tobacco Use Disorder - Anxiety Disorder (managed with buspirone) - History of insomnia, treated with trazodone - Past use of clonazepam for anxiety Medications: - Atorvastatin for hyperlipidemia - Buspirone for anxiety - Clonazepam for anxiety - Glipizide for diabetes - Insulin for diabetes - Metformin 1 g BID for diabetes - Lisinopril 20 mg for hypertension - Trazodone for insomnia Social History: - Smokes approximately 8 cigarettes daily, contributing to a chronic smoker's cough. - Reports efforts to manage diabetes by controlling diet, aware of the need to reduce sweet intake. - Consumes watermelon as part of her diet, but reports recent consumption of sweets like ice cream. Family History: - , Du she will residence. Diagnostic Results: - Labs: - Previous A1c of 9.9% in February - Fasting blood glucose running at 275 mg/dL reported Problem List - Uncontrolled Type 2 Diabetes Mellitus - Tobacco Use Disorder - Hypertension - Anxiety Disorder - depression and anxiety managed by psych med prescriber Patient Instructions - Make efforts to stop smoking or cut down significantly. - Focus on controlling dietary sugar intake to manage diabetes. - Complete labs before the next visit in three months. - No fasting required for upcoming labs; ensure blood is drawn before 3:00 PM. Medical Decision Making The patient presents with uncontrolled diabetes mellitus, with a fasting glucose of 275 mg/dL and an A1c of 9.9% as recorded in the previous months. Dietary adherence and lifestyle modification are considered primary interventions. The plan to manage the raised blood sugar includes rather than increasing insulin dosage, stressing patient lifestyle modifications. The patient is advised to reduce sweet intake and ensure nutritional management. Tobacco use continues to contribute to her smoker?s cough, emphasizing the need for smoking cessation strategies. Management of hypertension incorporates ongoing use of lisinopril with a focus on lifestyle changes. The overall goal is to stabilize the patient's blood glucose, blood pressure, and minimize the risk of complications from chronic conditions. Orders: Orders AMB Hemoglobin A1c Today Z13.9 - Encounter for screening, unspecified
[2025-06-22 12:17] VITALS: BP 140/82; PULSE 79; O2SAT 97; BMI 25.9
--- OUTSIDE RECORDS SUMMARY | 2025-06-22 12:47 | XMS_ITS | Clinical Summary ---
Author Organization [facility] Address [address] [place] [address] Care Team Providers Care [facility] Wheeler Name Role Phone Unavailable Primary Care Provider [...] Plan of Treatment Not on file Insurance [facility] [employer] [facility]
== END 2025-06-22 12:31 | disposition home or self-care (01) ==
LOC: HO.HMCC 12:04
PROVIDERS: PCP Internal Medicine; Visit Provider Internal Medicine
DX: E11.65 Type 2 diabetes mellitus with hyperglycemia (principal); Z91.119 Patient's noncompliance with dietary regimen due to unspecified reason; F41.1 Generalized anxiety disorder; G47.9 Sleep disorder, unspecified; I10 Essential (primary) hypertension; Z72.0 Tobacco use; F10.20 Alcohol dependence, uncomplicated; Z13.9 Encounter for screening, unspecified

== ENCOUNTER → 2025-06-22 12:03 | Outpatient (BNVA) | payer OTHER, SELFPAY | PROVIDERS: PCP Internal Medicine; Visit Provider Internal Medicine | DX: E11.65 Type 2 diabetes mellitus with hyperglycemia (principal); J41.0 Simple chronic bronchitis; I10 Essential (primary) hypertension; F41.1 Generalized anxiety disorder; G47.9 Sleep disorder, unspecified; F10.20 Alcohol dependence, uncomplicated; F17.210 Nicotine dependence, cigarettes, uncomplicated; Z79.4 Long term (current) use of insulin; Z79.84 Long term (current) use of oral hypoglycemic drugs; Z79.899 Other long term (current) drug therapy; Z91.119 Patient's noncompliance with dietary regimen due to unspecified reason | CPT/HCPCS: 83036; 96127 ==

== ENCOUNTER 2025-08-24 13:50 | Outpatient (AMB) | payer OTHER, SELFPAY ==
--- NOTE | 2025-08-24 13:53 | A.OFFPC_ITS ---
Vital Signs 08/24/25 13:54 Height 5 ft 6.5 in BMI Reason not done Patient refused/unable BP 160/90 H Blood Pressure Location Lt brachial Position Sitting Pulse 106 H Pulse Source Pulse Oximeter Pulse Oximetry (%) 97 Oxygen Delivery Method Room Air Intake Visit Reasons: s/p fall Accompanied by: Spouse Allergies paroxetine (From Paxil) Adverse Reaction (Verified 08/24/25 13:56) Itching Medication List - Last Reconciled 08/24/25 by Carlos Alberto Zapata MD amitriptyline 25 mg PO BEDTIME atorvastatin 40 mg PO DAILY blood sugar diagnostic (Digital Fortress[employer] Verio test strips) Test blood sugar once a day buspirone 15 mg PO TID 30 days clonazepam 0.5 mg PO BID glipizide 10 mg PO BID 90 days insulin lispro (Humalog U-100 Insulin) 15 units (0.15 mL) subcut TID 30 days lancets (Accu-Chek Softclix Lancets) Test blood sugar once a day lisinopril 20 mg PO DAILY metformin 1,000 mg PO BID 90 days oxycodone-acetaminophen 5-325 mg tabs PO pioglitazone (Actos) 30 mg PO DAILY trazodone 200 mg (2 x 100 mg) PO BEDTIME PRN Tobacco use date assessed: 03/30/25 Fall risk assessment: 2 + Falls in past year Last assessed Fall Risk: 08/24/25 Dental Screening Dental Screen Date: 03/30/25 HPI s/p fall HPI Details Patient is 69-year-old female she was at [facility] on 08/10/2025 after having a fall she slipped in her tub 2 days before arrival and landed on her right lateral hip patient did not had any pain at that time but later on started having severe pain X-ray of hip showed no fracture as the pain started later in the day it is thought to be more of a tendinitis patient was discharged home and was prescribed oxycodone 20 tablets Patient ran out of medication and is having severe pain still especially in the groin area However she is able to get up and walk, her is here with her who is helping her She is requesting pain medication assistance I have sent 20 tablets patient was instructed to take 1 every 6 hour as needed and no more than that I have also placed a referral to orthopedic for evaluation And she will come in in 7 days for a visit with me as well [facility] Medical History Anxiety Smoker Diabetes Elevated cholesterol HTN (hypertension) Surgical History Hx of colonoscopy Hx of elbow surgery Social History Housing: House Patient Tobacco Use Status: Current everyday Tobacco user Tobacco use type: Cigarette Cigarettes Per Day: 9 e-Cigarette/Vaping Use: Never Used service: No Current occupational status: disabled Cognitive needs: No Hearing needs: No Vision needs: Yes Questionnaire Thrive Questionnaire Date Thrive assessed: 06/22/25 SETH-7 AMB Questionnaire SETH-7 Date SETH - 7 assessed: 06/22/25 Source: Developed by Drs. Clyde Mendoza, Britni Narayanan, Juan Marcum and colleagues, with an educational eileen from [employer]. Review of Systems Const Denies chills and Denies fever(s) ENT Denies epistaxis and Denies nasal discharge Card Denies chest pain Resp Denies chest congestion, Denies cough and Denies hemoptysis GI Denies diarrhea and Denies nausea Skin/Breast Denies rash Neuro Reports no additional complaints Psych Reports no additional complaints Endo Reports no additional complaints Physical exam (Primary Care) Vital Signs: Last Vital Signs Pulse 106 H 08/24/25 13:54 BP 160/90 H 08/24/25 13:54 Pulse Ox 97 08/24/25 13:54 Oxygen Delivery Method Room Air 08/24/25 13:54 Tobacco/Smoking Status: Tobacco use Status Tobacco use date assessed 03/30/25 08/24/25 13:59 Patient Tobacco Use Status Current everyday Tobacco 08/24/25 13:59 Tobacco use type Cigarette 08/24/25 13:59 e-Cigarette/Vaping Use Never Used 08/24/25 13:59 Thrive Assessment: Date of Thrive Assessment Date Thrive assessed 06/22/25 08/24/25 13:59 Const Other: Sitting in wheelchair, seem to be in distress due to pain especially if leg is moved General: cooperative Orientation/consciousness: patient oriented x3 HENMT Head: Yes normocephalic Eyes General: appearance normal, both eyes and all related structures Neck Neck: Yes supple Resp Effort & Inspection: normal respiratory effort, no cough and no stridor Cardio Rhythm: regular rhythm Heart sounds: S1 normal heart sound present and S2 normal heart sound present Skin General skin exam: turgor normal Neuro General: patient oriented x3 and tone normal Extrem Other: As patient had a visit in emergency room and x-ray did not show any fracture I did not try to examine more than she could take, she is still very sore Right lower extremity: no edema Left lower extremity: no edema Coding Level of Care Code Est Pt Level 4 (24184) Diagnoses Injury of right hip, initial encounter S79.911A Encounter type: initial encounter Fall, initial encounter W19.XXXA Encounter type: initial encounter Pain of right hip M25.551 Laterality: right Pain management R52 Assessment & Plan Assessment & Plan (1) Trauma of right hip: Code(s): S79.911A - Unspecified injury of right hip, initial encounter Category: Medical Qualifiers: Encounter type: initial encounter Qualified Code(s): S79.911A - Unspecified injury of right hip, initial encounter (2) Fall: Code(s): W19.XXXA - Unspecified fall, initial encounter Category: Medical Qualifiers: Encounter type: initial encounter Qualified Code(s): W19.XXXA - Unspecified fall, initial encounter (3) Hip pain: Code(s): M25.559 - Pain in unspecified hip Category: Medical Qualifiers: Laterality: right Qualified Code(s): M25.551 - Pain in right hip (4) Pain management: Code(s): R52 - Pain, unspecified Category: Medical Plan Patient is 69-year-old female she was at [facility] on 08/10/2025 after having a fall she slipped in her tub 2 days before arrival and landed on her right lateral hip patient did not had any pain at that time but later on started having severe pain X-ray of hip showed no fracture as the pain started later in the day it is thought to be more of a tendinitis patient was discharged home and was prescribed oxycodone 20 tablets Patient ran out of medication and is having severe pain still especially in the groin area However she is able to get up and walk, her is here with her who is helping her She is requesting pain medication assistance I have sent 20 tablets patient was instructed to take 1 every 6 hour as needed and no more than that I have also placed a referral to orthopedic for evaluation And she will come in in 7 days for a visit with me as well Orders: Referrals Orthopedics Referral M25.559 - Pain in unspecified hip Medications: New oxycodone-acetaminophen 5-325 mg 1 tab PO Q6H 28 tabs 0RF 7 days
[2025-08-24 13:54] VITALS: BP 160/90; PULSE 106; O2SAT 97
== END 2025-08-24 14:16 | disposition home or self-care (01) ==
LOC: HO.HMCC 13:51
PROVIDERS: PCP Internal Medicine; Visit Provider Internal Medicine
DX: S79.911A Unspecified injury of right hip, initial encounter (principal); W19.XXXA Unspecified fall, initial encounter; M25.551 Pain in right hip

== ENCOUNTER 2025-11-02 09:18 | Outpatient (REF) | payer OTHER, SELFPAY ==
[2025-11-02 14:30] LABS: MANUAL DIFF FLAG NO
[2025-11-02 14:39] LABS: Hematocrit 40.0 % (37.0-47.0); Hemoglobin 12.6 g/dl (12.0-16.0); Imm Gran Abs Auto 0.04 X10*3/uL (0.00-0.03); Imm Gran Pct Auto 0.4 % (0.0-0.4); Lymphocytes Absolute Auto 1.7 X10*3/uL (1.2-4.9); Mean Corpuscular HGB Conc 31.5 g/dl (31.0-35.0); Mean Corpuscular Hemoglobin 28.9 pg (27.0-33.0); Mean Corpuscular Volume 91.7 fL (80.0-98.0); NRBC Abs Auto 0.000 X10*3/uL (0.0-0.012); NRBC Pct Auto 0.0 /100WBC (0.0-0.2); Platelet Count 279 X10*3/uL (160-400); Red Blood Count 4.36 X10*6/uL (4.20-5.50); White Blood Count 9.5 X10*3/uL (4.8-10.8)
[2025-11-02 14:55] LABS: Alanine Aminotransferase 18 U/L (0-31); Albumin Level 4.5 g/dL (3.5-5.0); Alkaline Phosphatase 107 U/L (39-117); Anion Gap 14 (12-20); Aspartate Amino Transferase 20 U/L (5-31); Blood Urea Nitrogen 20 mg/dL (9-16); Calcium 10.2 mg/dL (8.4-10.2); Carbon Dioxide 25 mmol/L (22-29); Chloride 105 mmol/L (96-108); Estimated Glomerular Filt Rate > 60; Potassium 4.5 mmol/L (3.3-5.1); Sodium 139 mmol/L (135-145); Total Protein 7.4 g/dL (6.5-8.0)
== END 2025-11-02 09:19 | disposition home or self-care (01) ==
LOC: HO.HMGCLDS 09:18
PROVIDERS: PCP Internal Medicine; Visit Provider Internal Medicine
DX: I10 Essential (primary) hypertension (principal); I49.9 Cardiac arrhythmia, unspecified; I49.1 Atrial premature depolarization; E11.65 Type 2 diabetes mellitus with hyperglycemia; F41.1 Generalized anxiety disorder; G47.9 Sleep disorder, unspecified; G62.1 Alcoholic polyneuropathy; F10.20 Alcohol dependence, uncomplicated; F17.210 Nicotine dependence, cigarettes, uncomplicated; Z79.84 Long term (current) use of oral hypoglycemic drugs; Z79.4 Long term (current) use of insulin; Z79.891 Long term (current) use of opiate analgesic; Z79.899 Other long term (current) drug therapy
CPT/HCPCS: 36415; 80053; 83036; 83721; 85025

== ENCOUNTER 2025-11-02 09:18 | Outpatient (AMB) | payer OTHER, SELFPAY ==
[2025-11-02 09:28] VITALS: BP 160/80; PULSE 91; O2SAT 94; BMI 24.8
--- NOTE | 2025-11-02 09:28 | A.OFFPC_ITS ---
Vital Signs 11/02/25 09:28 Height 5 ft 6.5 in Weight 156 lb BMI 24.8 BP 160/80 H Blood Pressure Location Lt brachial Position Sitting Pulse 91 Pulse Source Pulse Oximeter Pulse Oximetry (%) 94 Intake Visit Reasons: BP med follow up Allergies paroxetine (From Paxil) Adverse Reaction (Verified 11/02/25 09:28) Itching Medication List - Last Reconciled 11/02/25 by Carlos Alberto aZpata MD atorvastatin 40 mg PO DAILY blood sugar diagnostic (OneTouch Verio test strips) Test blood sugar once a day buspirone 15 mg PO TID 30 days clonazepam 0.5 mg PO BID glipizide 10 mg PO BID 90 days insulin lispro (Humalog U-100 Insulin) 15 units (0.15 mL) subcut TID 30 days lancets (Accu-Chek Softclix Lancets) Test blood sugar once a day lisinopril 30 mg PO DAILY 90 days metformin 1,000 mg PO BID 90 days oxycodone-acetaminophen 5-325 mg 1 tab PO Q6H 7 days pioglitazone (Actos) 30 mg PO DAILY trazodone 200 mg (2 x 100 mg) PO BEDTIME PRN Tobacco use date assessed: 03/30/25 Fall risk assessment: No Falls in past year Last assessed Fall Risk: 11/02/25 Dental Screening Dental Screen Date: 03/30/25 HPI HPI Comments History of Present Illness Details History of Present Illness The patient is a 70 year old female presenting for a follow-up visit for chronic condition management and evaluation of a tailbone injury after a fall. Hypertension: - The patient has elevated blood pressur e noted during the visit. - She takes lisinopril 20 mg for this co ndition. - She does not monitor her blood pressur e at home and does not own a monitor. Type 2 diabetes mellitus: - The patient's hemoglobin A1c was 8.6% in June and is currently 8.0%. - Her medication regimen includes glipiz kelly 10 mg twice daily, insulin 15 units three times daily, metformin 1 gram twice daily, and pioglitazone 30 mg once daily. Anxiety: - The patient takes buspirone three time s a day for anxiety. Fall with coccyx injury: - The patient reports a recent fall wher e she slipped on a dryer sheet and landed flat on her back, resulting in a tailbone injury. - She reports her tailbone is still hurt ing, which makes lying down difficult. 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 Medications: - Atorvastatin 40 mg for cholesterol - Buspirone for anxiety, taken three jessie es a day - Glipizide 10 mg twice a day for diabet es - Insulin 15 units three times a day for diabetes - Lisinopril 20 mg for hypertension - Metformin 1 gram twice a day for diabe bibi - Pioglitazone 30 mg once a day for diab etes - Trazodone 200 mg at bedtime Social History: - The patient lives in [place], which is [place]hour drive from the clinic. - She was advised to be careful when wal pauly to avoid falls. Diagnostic Results: - Labs: Hemoglobin A1c was 8.6% in t and is 8.0% currently. - Tests and Diagnostics: An in-office EK G revealed an irregular heart rhythm with extra beats. due to PACs which is new compare to last year [facility] Medical History Anxiety Smoker Diabetes Elevated cholesterol HTN (hypertension) Surgical History Hx of colonoscopy Hx of elbow surgery Social History Housing: House Patient Tobacco Use Status: Current everyday Tobacco user Tobacco use type: Cigarette Cigarettes Per Day: 9 e-Cigarette/Vaping Use: Never Used service: No Current occupational status: disabled Cognitive needs: No Hearing needs: No Vision needs: Yes Questionnaire Thrive Questionnaire Date Thrive assessed: 06/22/25 SETH-7 AMB Questionnaire SETH-7 Date SETH - 7 assessed: 06/22/25 Source: Developed by Drs. Clyde Mendoza, Britni Narayanan, Juan Marcum and colleagues, with an educational eileen from [employer]. Review of Systems Narrative Review of Systems - General: No fever no chills - Neurological: No headaches - Ear nose throat: No sore throat no hearing difficulty no ear pain - Cardiovascular: No syncope, no chest pain, no palpitations - Gastrointestinal: No nausea vomiting or diarrhea - Endocrine: No polyuria polydipsia no heat intolerance - Genitourinary: No dysuria , no blood in urine Physical exam (Primary Care) Vital Signs: Last Vital Signs Pulse 91 11/02/25 09:28 BP 160/80 H 11/02/25 09:28 Pulse Ox 94 11/02/25 09:28 BMI result Body Mass Index 24.8 Tobacco/Smoking Status: Tobacco use Status Tobacco use date assessed 03/30/25 11/02/25 09:29 Patient Tobacco Use Status Current everyday Tobacco 11/02/25 09:29 Tobacco use type Cigarette 11/02/25 09:29 e-Cigarette/Vaping Use Never Used 11/02/25 09:29 Thrive Assessment: Date of Thrive Assessment Date Thrive assessed 06/22/25 11/02/25 09:29 Narrative Physical Exam General: No acute distress HEENT: No acute findings Neck: Supple Respiratory system: Able to talk in full sentences, no audible wheeze Cardiovascular: Irregular heart rhythm, extra beats noted Gastrointestinal: No pain Extremities: No new findings [employer]: Alert awake oriented x3 motor intact, walk indicate peripheral neuropathy Skin: Normal turgor Results AMB Hemoglobin A1c AMB Hemoglobin A1c 8.0 % Last Edit by López Garner CMA on 11/02/25 09: 49 Results Reviewed Results Reviewed: Laboratory Last Values Hgb A1c (Clinic) 8.0 % (4.0-6.0) H 11/02/25 09:49 Coding Level of Care Code Est Pt Level 5 (60278) Diagnoses Irregular heart beat I49.9 PAC (premature atrial contraction) I49.1 Uncontrolled hypertension I10 Uncontrolled type 2 diabetes mellitus with hyperglycemia E11.65 Diabetes mellitus type: type 2 Glycemic state: with hyperglycemia Anxiety, generalized F41.1 Difficulty sleeping G47.9 Tobacco abuse Z72.0 Alcoholism F10.20 Time Spent (min) 40 Comment spent in care of this patient Assessment & Plan Assessment & Plan (1) Irregular heart beat: Code(s): I49.9 - Cardiac arrhythmia, unspecified Category: Medical (2) PAC (premature atrial contraction): Code(s): I49.1 - Atrial premature depolarization Category: Medical (3) Uncontrolled hypertension: Code(s): I10 - Essential (primary) hypertension Category: Medical (4) Uncontrolled diabetes mellitus: Category: Medical Qualifiers: Diabetes mellitus type: type 2 Glycemic state: with hyperglycemia Qualified Code(s): E11.65 - Type 2 diabetes mellitus with hyperglycemia (5) Anxiety, generalized: Code(s): F41.1 - Generalized anxiety disorder Category: Medical (6) Difficulty sleeping: Code(s): G47.9 - Sleep disorder, unspecified Category: Medical (7) Tobacco abuse: Code(s): Z72.0 - Tobacco use Category: Medical (8) Alcoholism: Code(s): F10.20 - Alcohol dependence, uncomplicated Category: Medical Plan Problem List - Hypertension - Type 2 diabetes mellitus - Hyperlipidemia - Anxiety - Cardiac arrhythmia / PACs - Insomnia - Recent fall with coccyx injury - alcoholism - alcoholic neuropathy Plan - Hypertension: The dose of lisinopril will be increased from 20 mg to 30 mg daily. A 90-day prescription was sent. - Cardiac Arrhythmia: An in-office EKG was performed, which showed an irregular rhythm. A referral will be made to a environmental compliance specialist at [facility] for further evaluation, as per patients request, she is live close to that facility - Diabetes Mellitus: The patient will have blood tests performed today to monitor her blood sugar. - Medication Management: Amitriptyline has been removed from the patient's active medication list. The patient was advised that the maximum dose of buspirone is 15 mg and her request for an increased frequency was declined. - Safety: The patient was counseled on fall prevention. - Follow-up: The patient will follow up in 3 months for a blood pressure check and to review lab results. She was also advised to stop drinking Orders: Orders AMB Hemoglobin A1c Today Z13.9 - Encounter for screening, unspecified Comprehensive Met. Panel Today E11.65 - Type 2 diabetes mellitus with hyperglycemia, F10.20 - Alcohol dependence, uncomplicated, F41.1 - Generalized anxiety disorder, G47.9 - Sleep disorder, unspecified, I10 - Essential (primary) hypertension, Z72.0 - Tobacco use Microalbumin, Random (w Creat) Today E11.65 - Type 2 diabetes mellitus with hyperglycemia, F10.20 - Alcohol dependence, uncomplicated, F41.1 - Generalized anxiety disorder, G47.9 - Sleep disorder, unspecified, I10 - Essential (primary) hypertension, Z72.0 - Tobacco use LDL Cholesterol Direct Today E11.65 - Type 2 diabetes mellitus with hyperglycemia, F10.20 - Alcohol dependence, uncomplicated, F41.1 - Generalized anxiety disorder, G47.9 - Sleep disorder, unspecified, I10 - Essential (primary) hypertension, Z72.0 - Tobacco use Complete Blood Count Auto Diff Today E11.65 - Type 2 diabetes mellitus with hy perglycemia, F10.20 - Alcohol dependence, uncomplicated, F41.1 - Generalized anxiety disorder, G47.9 - Sleep disorder, unspecified, I10 - Essential (primary) hypertension, Z72.0 - Tobacco use AMB EKG-In Office Today I49.9 - Cardiac arrhythmia, unspecified Referrals Cardiology Referral I10 - Essential (primary) hypertension, I49.1 - Atrial premature depolarization Medications: Changed From lisinopril 20 mg PO DAILY 90 tabs 0RF To lisinopril 30 mg PO DAILY 90 tabs 0RF 90 days Discontinued oxycodone-acetaminophen 5-325 mg Discontinued Reason: Doctor's Order 1 tab PO Q6H 7 days 28 tabs 0RF
== END 2025-11-02 10:09 | disposition home or self-care (01) ==
LOC: HO.HMCC 09:19
PROVIDERS: PCP Internal Medicine; Visit Provider Internal Medicine
DX: E11.65 Type 2 diabetes mellitus with hyperglycemia (principal); F10.20 Alcohol dependence, uncomplicated; I49.9 Cardiac arrhythmia, unspecified; I49.1 Atrial premature depolarization; I10 Essential (primary) hypertension; F41.1 Generalized anxiety disorder; G47.9 Sleep disorder, unspecified; Z72.0 Tobacco use